=== PATIENT | female | born 1950 | race Caucasian/White ===

== ENCOUNTER 2018-06-15 13:05 | Inpatient (IN) ==
[2018-06-15 14:20] LABS: Baso # (Auto) 0.1 th/mm3 (0.0-0.2); Baso % (Auto) 0.4 % (0.0-2.0); Eos % (Auto) 0.1 % (0.0-4.0); Hematocrit 43.1 % (35.0-46.0); Hemoglobin 14.6 gm/dL (11.6-15.3); Lymph # (Auto) 1.6 th/mm3 (1.0-4.8); Lymph % (Auto) 11.6 % (9.0-44.0); Mean Corpuscular HGB Conc 33.8 % (32.0-36.0); Mean Corpuscular Hemoglobin 30.3 pg (27.0-34.0); Mean Corpuscular Volume 89.7 fL (80.0-100.0); Mean Platelet Volume 7.1 fL (7.0-11.0); Mono % (Auto) 7.5 % (0.0-8.0); Neut # (Auto) 10.9 th/mm3 (1.8-7.7); Neut % (Auto) 80.4 % (16.0-70.0); Platelet Count 421 th/mm3 (150-450); Red Blood Count 4.81 mil/mm3 (4.00-5.30); White Blood Count 13.5 th/mm3 (4.0-11.0)
--- NOTE | 2018-06-15 14:47 | ED ---
HPI General Chief Complaint: Psychiatric Symptoms Stated Complaint: psych eval Time Seen by Provider: 06/15/18 14:04 Source: patient and other (naranjo act report) Limitations: no limitations History of Present Illness HPI Narrative: 67-year-old female presents to the emergency department under Naranjo act. According to the Naranjo act report the patient is very depressed and suffers from multiple health issues as well as financial issues. She has contemplated suicide multiple times and would do so by jumping off hotel balcony 's. The patient stood on the railing of a night for balcony this morning threatening to jump off. She stood on the railing for approximately an hour and a half before an officer was able to grab her and pull her to safety. She made several comments to the officer while being driven to the hospital that if she is released she will likely attempt this again. On my examination the patient reports that she is suicidal and she wants to jump off of a hotel balcony. She says she is thinking about it right now. She states "I regret not jumping." She denies history of suicidal attempts. Reports thinking of suicide multiple times in the past. Denies homicidal ideations. Denies auditory visual hallucinations. Denies illicit drug use, alcohol use, tobacco use. Symptoms are aggravated because of her "severe pain"and describes her severe pain is muscle spasms all over her body. Also aggravated secondary to her health issues. She is complaining of a headache, left wrist abrasions, and right knee pain secondary to injury during being pulled off the balcony. She reports hitting her head on a wall. No loss of consciousness. Has not vomited. Reports a lump to the back of her head that is painful. Not up-to- date on her tetanus vaccination and does not want it updated. Symptoms are severe in severity. No known relieving factors. Onset unknown. Duration most likely chronic. History of adenocarcinoma, ischemic CAD, angioplasty, COPD, asthma, hypertension, borderline diabetes, hypothyroid. Allergies to codeine. Primary CARE providers Dr. Carlos in [place]. Has no other medical complaints. No other modifying factors or associated signs and symptoms. Related Data Home Medications Medication Instructions Recorded Confirmed albuterol sulfate [Ventolin HFA] 1 puff INHALATION Q4-6H PRN 06/15/18 06/15/18 budesonide-formoterol [Symbicort] 1 puff INHALATION BID 06/15/18 06/15/18 losartan 25 mg PO DAILY 06/15/18 06/15/18 Previous Rx's Medication Instructions Recorded levothyroxine [Synthroid] 100 mcg PO DAILY #30 tab 05/08/18 Allergies Allergy/AdvReac Type Severity Reaction Status Date / Time codeine AdvReac Mild Nausea/Vomi Verified 06/15/18 13:18 ting Review of Systems ROS: all other systems reviewed are negative [facility] Medical History Medical History Coronary artery disease (Acute) Diabetes (Acute) Hyperthyroidism (Acute) Hypothyroidism (Acute) Lung nodules (Acute) Myocardial infarction (Acute) Uterine cancer (Acute) Surgical History Surgical History History of angioplasty (Acute) History of facial surgery (Acute) History of gynecologic surgery (Acute) History of tonsillectomy (Acute) Social History Social History Substance History: No History of Abuse Second Hand Smoke Exposure: Yes Smoking Status: Current some day smoker Tobacco Type: Cigarettes How Often Do You Have a Drink Containing Alcohol: Never Recent Travel in [facility] within the Last 8 Weeks: No Recent Out of Country Travel within the Last 8 Weeks: No Immunization History Tetanus Immunization: Unsure Exam Narrative Exam Narrative: GENERAL: Well-nourished, well-developed female patient , in no acute distress SKIN: Warm and dry. Abrasion noted to left wrist, palmar aspect. HEAD:Normocephalic. Palpable posterior scalp hematoma. EYES: Pupils equal and round. ENT: Mucosa pink and moist. NECK: Supple. Trachea midline. CARDIOVASCULAR: Regular rate and rhythm. No murmur appreciated. RESPIRATORY: No accessory muscle use. Clear to auscultation. Breath sounds equal bilaterally. GASTROINTESTINAL: Abdomen soft, non-tender, nondistended. Hepatic and splenic margins not palpable. Bowel sounds are active 4 quadrants. MUSCULOSKELETAL: Right knee mildly edematous with ecchymosis and a small abrasion noted; full range of motion in flexion to 90 degrees; joint stable with negative drawer test; no obvious deformity; tenderness on palpation to the anterior/patellar aspect. Right lower extremity is supple and non-tense with 2 + pedal pulse and sensory intact and without erythema or edema. No obvious deformities. No clubbing. No cyanosis. No edema. NEUROLOGICAL: Awake and alert. Oriented 3. No obvious cranial nerve deficits. Motor grossly within normal limits. Normal speech. Moves all extremities. 5/5 strength to all extremities. PSYCHIATRIC: No delusional thought processes. No hallucinations. Course Initial Documented Vital Signs Temperature 97.6 F 06/15/18 13:24 Pulse Rate 81 06/15/18 13:24 Respiratory Rate 16 06/15/18 13:24 Blood Pressure 139/86 06/15/18 13:24 Pulse Oximetry 96 06/15/18 13:24 Last Documented Vital Signs Temperature 97.6 F 06/15/18 13:24 Pulse Rate 81 06/15/18 13:24 Respiratory Rate 16 06/15/18 13:24 Blood Pressure 139/86 06/15/18 13:24 Pulse Oximetry 96 06/15/18 13:24 Medical Decision Making EMY Attestation EMY supervised visit: Yes Attestation: I was present with the advanced practitioner during the management of this patient. I discussed the case with the advanced practitioner and agree with the findings and plan as documented in their note except as noted below. 67yF presenting under a Naranjo Act for depression, suicidal ideation, and psychosis. The patient has a history of hyponatremia and thyroid disease and says "I have so many health problems I just don't want to be here anymore". She is vague when asked directly about suicidal ideation but was reportedly stopped by police from attempting to jump off of a balcony. She says that she does not take salt tabs at home "because I'm not supposed to have any salt or sugar at all". Denies recent change in synthroid dose. Well-appearing, no acute distress NCAT Trachea midline Regular rate and rhythm Lungs clear to auscultation bilaterally Abdomen soft and non-tender Psoriatic rash to right elbow A&Ox3 Speech pressured and somewhat tangential, calm A/P: 67yF presenting with suicidal ideation, found to have acute on chronic severe hyponatremia during medical clearance workup Patient is being held under [place] Act, will need psych eval TSH elevated, check free T4 Will need medical stabilization for hyponatremia prior to being medically cleared MDM Narrative Medical decision making narrative: Patient presents under a Naranjo act. Physical examination and vital signs are essentially unremarkable. Patient has no medical complaints to report. Psych screen has been ordered. If the laboratory results are unremarkable, the patient will be medically cleared for psychiatric evaluation and disposition. 1539: CT head unremarkable. Right knee x-ray concludes : Mild degenerative changes. Small effusion. CBC unremarkable. Sodium 123. TSH 16.3; patient has history of hypothyroid and takes Synthroid and says that she is been taking it every day, except for this morning. IV and 500 mL normal saline bolus ordered. Free T4 ordered. Patient will be admitted to medical. Call placed for patient admission. 1618: I spoke with CLARENCE Hannon and report given for patient admission. Medical Screen Exam Complete: Yes Emergency Medical Condition: Yes Differential Diagnosis Differential Diagnosis: Suicidal threat, suicidal ideation, depression, head contusion, abrasion, knee injury, medical clearance for psychiatric evaluation Lab Data Result diagrams: 06/15/18 13:23 06/15/18 13:23 Lab Results 06/15/18 06/15/18 06/15/18 Range/Units 13:23 13:23 13:23 WBC 13.5 H (4.0-11.0) th/mm3 RBC 4.81 (4.00-5.30) mil/mm3 Hgb 14.6 (11.6-15.3) gm/dL Hct 43.1 (35.0-46.0) % MCV 89.7 (80.0-100.0) fL MCH 30.3 (27.0-34.0) pg MCHC 33.8 (32.0-36.0) % RDW 16.0 (11.6-17.2) % Plt Count 421 (150-450) th/mm3 MPV 7.1 (7.0-11.0) fL Neut % (Auto) 80.4 H (16.0-70.0) % Lymph % (Auto) 11.6 (9.0-44.0) % [place] % (Auto) 7.5 (0.0-8.0) % Eos % (Auto) 0.1 (0.0-4.0) % Baso % (Auto) 0.4 (0.0-2.0) % Neut # (Auto) 10.9 H (1.8-7.7) th/mm3 Lymph # (Auto) 1.6 (1.0-4.8) th/mm3 [place] # (Auto) 1.0 H (0.0-0.9) th/mm3 Eos # (Auto) 0.0 (0.0-0.4) th/mm3 Baso # (Auto) 0.1 (0.0-0.2) th/mm3 WBC Differential . Differential Comment Auto diff final Sodium 123 L* (136-145) meq/L Potassium 4.1 (3.5-5.1) meq/L Chloride 89 L (98-107) meq/L Carbon Dioxide 25.6 (21.0-32.0) meq/L Anion Gap 8 (5-15) meq/L BUN 12 (7-18) mg/dL Creatinine 0.83 (0.50-1.00) mg/dL Estimated GFR 69 L (>89) mL/min Random Glucose 100 (74-106) mg/dL Calcium 9.0 (8.5-10.1) mg/dL Magnesium 2.4 (1.5-2.5) mg/dL Total Bilirubin 1.1 H (0.2-1.0) mg/dL AST 37 (15-37) U/L ALT 40 (10-53) U/L Alkaline Phosphatase 63 (45-117) U/L Total Protein 8.0 (6.4-8.2) g/dL Albumin 4.7 (3.4-5.0) g/dL TSH 16.300 H (0.358-3.740) uIU/mL Urine Color (Yellw/Straw) Urine Clarity (Clear) Urine pH (5.0-8.5) Ur Specific [place] (1.002-1.035) Urine Protein (Neg-Trace) mg/dL Urine Glucose (UA) (Negative) mg/dL Urine Ketones (Negative) mg/dL Urine Occult Blood (Negative) Urine Nitrate (Negative) Urine Bilirubin (Negative) Urine Urobilinogen (Less than 2) mg/dL Ur Leukocyte Esterase (Negative) Urine RBC (0-3) /hpf Urine WBC (0-5) /hpf Ur Squamous Epith Cells (0-5) /hpf Urine Bacteria (None) /hpf Hyaline Casts (0-3) /lpf Micro UA Comment Ur Microscopic Review Urine Culture Comments Salicylates (2.8-20.0) mg/dL Urine Opiates Screen (Neg) Acetaminophen Less than 2.0 L Cancelled (10.0-30.0) mcg/mL Ur Barbiturates Screen (Neg) Ur Amphetamines Screen (Neg) U Benzodiazepines Scrn (Neg) Urine Cocaine Screen (Neg) U Cannabinoids Screen (Neg) Serum Alcohol Less than 3 (0-5) mg/dL 06/15/18 06/15/18 06/15/18 Range/Units 13:23 14:55 14:55 WBC (4.0-11.0) th/mm3 RBC (4.00-5.30) mil/mm3 Hgb (11.6-15.3) gm/dL Hct (35.0-46.0) % MCV (80.0-100.0) fL MCH (27.0-34.0) pg MCHC (32.0-36.0) % RDW (11.6-17.2) % Plt Count (150-450) th/mm3 MPV (7.0-11.0) fL Neut % (Auto) (16.0-70.0) % Lymph % (Auto) (9.0-44.0) % Blanco % (Auto) (0.0-8.0) % Eos % (Auto) (0.0-4.0) % Baso % (Auto) (0.0-2.0) % Neut # (Auto) (1.8-7.7) th/mm3 Lymph # (Auto) (1.0-4.8) th/mm3 [place] # (Auto) (0.0-0.9) th/mm3 Eos # (Auto) (0.0-0.4) th/mm3 Baso # (Auto) (0.0-0.2) th/mm3 WBC Differential Differential Comment Sodium (136-145) meq/L Potassium (3.5-5.1) meq/L Chloride (98-107) meq/L Carbon Dioxide (21.0-32.0) meq/L Anion Gap (5-15) meq/L BUN (7-18) mg/dL Creatinine (0.50-1.00) mg/dL Estimated GFR (>89) mL/min Random Glucose (74-106) mg/dL Calcium (8.5-10.1) mg/dL Magnesium (1.5-2.5) mg/dL Total Bilirubin (0.2-1.0) mg/dL AST (15-37) U/L ALT (10-53) U/L Alkaline Phosphatase (45-117) U/L Total Protein (6.4-8.2) g/dL Albumin (3.4-5.0) g/dL TSH (0.358-3.740) uIU/mL Urine Color Yellow (Yellw/Straw) Urine Clarity Clear (Clear) Urine pH 6.0 (5.0-8.5) Ur Specific [place] 1.008 (1.002-1.035) Urine Protein 100 H (Neg-Trace) mg/dL Urine Glucose (UA) Negative (Negative) mg/dL Urine Ketones Negative (Negative) mg/dL Urine Occult Blood Moderate H (Negative) Urine Nitrate Negative (Negative) Urine Bilirubin Negative (Negative) Urine Urobilinogen Less than 2 (Less than 2) mg/dL Ur Leukocyte Esterase Negative (Negative) Urine RBC 3 (0-3) /hpf Urine WBC 1 (0-5) /hpf Ur Squamous Epith Cells <1 (0-5) /hpf Urine Bacteria Rare H (None) /hpf Hyaline Casts 3 (0-3) /lpf Micro UA Comment Culture not ind Ur Microscopic Review Not Reportable Urine Culture Comments Culture not ind Salicylates 3.4 (2.8-20.0) mg/dL Urine Opiates Screen Neg (Neg) Acetaminophen (10.0-30.0) mcg/mL Ur Barbiturates Screen Neg (Neg) Ur Amphetamines Screen Neg (Neg) U Benzodiazepines Scrn Neg (Neg) Urine Cocaine Screen Neg (Neg) U Cannabinoids Screen Neg (Neg) Serum Alcohol (0-5) mg/dL Imaging Data Radiologist's impression: Head CT 06/15/18 14:42 CONCLUSION: 1. No acute intracranial abnormalities. . Knee X-Ray 06/15/18 14:42 CONCLUSION: Mild degenerative changes. Small effusion. Discharge Plan Discharge Disposition Patient Disposition: 30 Still Patient Discharge Condition Condition: Stable Discharge Details Diagnosis: Hyponatremia, Elevated TSH Physicians Team ED Provider: Malinda Alva ED Midlevel Provider: Teresa Dai Primary Care Provider: UNKNOWN, Attending Provider: Kari Nicole ED Status: Admitted Patient
[2018-06-15 15:10] LABS: Alanine Aminotransferase 40 U/L (10-53); Albumin 4.7 g/dL (3.4-5.0); Alkaline Phosphatase 63 U/L (45-117); Anion Gap 8 meq/L (5-15); Aspartate Aminotransferase 37 U/L (15-37); Blood Urea Nitrogen 12 mg/dL (7-18); Carbon Dioxide 25.6 meq/L (21.0-32.0); Chloride 89 meq/L (98-107); Glomerular Filtration Rate 69 mL/min (>89); Glucose,Random 100 mg/dL (74-106); Magnesium 2.4 mg/dL (1.5-2.5)
[2018-06-15 15:20] LABS: Potassium 4.1 meq/L (3.5-5.1)
[2018-06-15 15:22] LABS: Bacteria,Urine Rare /hpf; Bilirubin,Urine Negative (Negative); Clarity,Urine Clear (Clear); Color,Urine Yellow (Yellw/Straw); Glucose,Urine (UA) Negative (Negative); Hyaline Casts,Urine 3 /lpf (0-3); Leukocyte Esterase,Urine Negative (Negative); Nitrite,Urine Negative (Negative); Specific Gravity,Urine 1.008 (1.002-1.035); Squamous Epithelial Cell,Urine <1 /hpf (0-5)
[2018-06-15 15:24] LABS: Sodium 123 meq/L (136-145)
--- NOTE | 2018-06-15 15:30 | XR ---
EXAM DATE: 06/15/2018 2:42 PM EDT AGE/SEX: 67 years / Female INDICATIONS: Fell today. CLINICAL DATA: This is the patient's initial encounter. Patient reports that signs and symptoms have been present for 1 day and indicates a pain score of Nonresponsive. MEDICAL/SURGICAL HISTORY: None. None. COMPARISON: No prior exams available for comparison. FINDINGS: Small knee joint effusion. Mild osteoarthritis of the patellofemoral joint. No fracture or dislocatio n. CONCLUSION: Mild degenerative changes. Small effusion. Electronically signed by: Vinnie Barros MD 06/15/2018 3:29 PM EDT
--- NOTE | 2018-06-15 15:33 | CT ---
EXAM DATE: 06/15/2018 2:48 PM EDT AGE/SEX: 67 years / Female INDICATIONS: Altered mental status. Left sided weakness. CLINICAL DATA: This is the patient's initial encounter. Patient reports that signs and symptoms have been present for 1 day and indicates a pain score of 6/10. MEDICAL/SURGICAL HISTORY: Diabetes. Carcinoma, uterine. Myocardial infarction. Tonsillectomy. RADIATION DOSE: 42.76 CTDI (mGy) COMPARISON: [facility] [place], CT HEAD W/O CONTRAST, 05/08/2018. . TECHNIQUE: CT of the head without contrast. Using automated exposure control and adjustment of the mA and/or kV according to patient size, radiation dose was kept as low as reasonably achievable to ob tain optimal diagnostic quality images. DICOM format image data is available electronically for revi ew and comparison. FINDINGS: Cerebrum: The ventricles are normal for age. No evidence of midline shift, mass lesion, hemorrhage or acute infarction. No extraaxial fluid collections are seen. Posterior Fossa: The cerebellum and brainstem are intact. The 4th ventricle is midline. The cerebe llopontine angle is unremarkable. Extracranial: The visualized portion of the orbits is intact. Skull: The calvaria is intact. No evidence of skull fracture. CONCLUSION: 1. No acute intracranial abnormalities. . Electronically signed by: El Xavier MD 06/15/2018 3:32 PM EDT
[2018-06-15] MEDS ORDERED: Sodium Chlor 0.9% Inj 500 ML IV.SIG SCH (16:00)
[2018-06-15 16:19] LABS: Amphetamine Screen,Urine Neg (Neg); Barbiturate Screen,Urine Neg (Neg); Cannabinoid Screen,Urine Neg (Neg); Cocaine Screen,Urine Neg (Neg)
[2018-06-15 16:50] LABS: Opiate Screen,Urine Neg (Neg)
[2018-06-15] MEDS ORDERED: Bisacodyl 10 MG Supp RECTAL PRN (17:27)
[2018-06-15] MEDS ORDERED: Sod Chloride 0.9% Inj 1,000 ML IV.CONT SCH (17:30)
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
[2018-06-15] MEDS: Heparin - SQ 10,000 UNITS/ML Vial SQ SCH (18:23)
[2018-06-15] MEDS: Senna/Docusate Sodium 8.6/50 MG Tablet PO SCH (21:09)
[2018-06-15] MEDS: Budesonide-Formoterol 160/4.5 MCG 6 GM Inhaler INH SCH (21:10)
[2018-06-15] MEDS: Acetaminophen 325 MG Tablet PO PRN (22:52)
[2018-06-16] MEDS: Acetaminophen 325 MG Tablet PO PRN ×3 (04:03→21:23)
[2018-06-16] MEDS: Heparin - SQ 10,000 UNITS/ML Vial SQ SCH ×2 (05:09→17:56)
[2018-06-16] MEDS: Levothyroxine 100 MCG Tablet PO SCH (05:09)
[2018-06-16 08:47] LABS: Baso % (Auto) 0.6 % (0.0-2.0); Eos % (Auto) 0.5 % (0.0-4.0); Hematocrit 38.6 % (35.0-46.0); Hemoglobin 13.2 gm/dL (11.6-15.3); Lymph # (Auto) 1.8 th/mm3 (1.0-4.8); Lymph % (Auto) 25.9 % (9.0-44.0); Mean Corpuscular HGB Conc 34.1 % (32.0-36.0); Mean Corpuscular Hemoglobin 30.8 pg (27.0-34.0); Mean Corpuscular Volume 90.2 fL (80.0-100.0); Mono # (Auto) 0.7 th/mm3 (0.0-0.9); Mono % (Auto) 10.4 % (0.0-8.0); Neut # (Auto) 4.4 th/mm3 (1.8-7.7); Neut % (Auto) 62.6 % (16.0-70.0); Platelet Count 346 th/mm3 (150-450); Red Blood Count 4.28 mil/mm3 (4.00-5.30); Red Cell Distribution Width 16.4 % (11.6-17.2); White Blood Count 6.9 th/mm3 (4.0-11.0)
[2018-06-16 08:56] LABS: Anion Gap 8 meq/L (5-15); Blood Urea Nitrogen 10 mg/dL (7-18); Calcium 7.9 mg/dL (8.5-10.1); Carbon Dioxide 25.7 meq/L (21.0-32.0); Chloride 94 meq/L (98-107); Glomerular Filtration Rate Greater Than 89 mL/min (>89); Glucose,Random 89 mg/dL (74-106); Potassium 3.6 meq/L (3.5-5.1); Sodium 128 meq/L (136-145)
[2018-06-16] MEDS: Senna/Docusate Sodium 8.6/50 MG Tablet PO SCH ×2 (09:52→21:23)
[2018-06-16] MEDS: Budesonide-Formoterol 160/4.5 MCG 6 GM Inhaler INH SCH ×2 (11:32→21:25)
--- NOTE | 2018-06-16 13:18 | P.PN ---
Subjective Interval history: Follow up: hyponatremia and Hypothyroidism Patient visited with sitter at bedside Patient endorses pain left knee Patient also has tangental pressured speech Physical Exam Vital signs: Vital Signs 06/15/18 13:24 06/15/18 16:30 06/15/18 19:05 Temperature 97.6 F Pulse Rate 81 84 Respiratory Rate 16 16 Blood Pressure 139/86 118/52 L Pulse Oximetry 96 98 97 06/15/18 19:10 06/15/18 20:00 06/15/18 23:57 Temperature 96.2 F L 96.4 F L Pulse Rate 96 H 74 91 H Respiratory Rate 18 19 Blood Pressure 137/69 139/70 Pulse Oximetry 97 96 06/16/18 00:00 06/16/18 04:00 06/16/18 08:00 Temperature 96.4 F L 97.8 F Pulse Rate 73 94 H 82 Respiratory Rate 18 20 Blood Pressure 135/71 155/74 H Pulse Oximetry 96 95 06/16/18 12:00 Temperature 97.3 F L Pulse Rate 82 Respiratory Rate 20 Blood Pressure 148/69 H Pulse Oximetry 97 Intake & Output 06/15/18 06/16/18 06/16/18 18:59 06:59 18:59 Intake Total 500 / 500 360 / 360 Output Total 1450 / 1450 Balance 500 / 500 -1090 / -1090 Weight 56.699 kg 62 kg Intake: IV 500 / 500 NS Inj 500 ML @ Wide Open IV. 500 / 500 SIG BOLUS SHANNON Rx#:[id number] Oral 360 / 360 Output: Urine 1450 / 1450 Other: # Bowel Movements 0 Weight On Admission 56.699 kg Narrative: GENERAL: This is a well-nourished, well-developed patient CARDIOVASCULAR: Regular rate and rhythm RESPIRATORY: Clear to auscultation. Breath sounds equal bilaterally. GASTROINTESTINAL: Abdomen soft, non-tender, nondistended. Normal active bowel sounds MUSCULOSKELETAL: Extremities without clubbing, cyanosis. left knee mild edema NEURO: Alert & Oriented. Moves all ext x4. tangental pressured speech Results - Labs CBC & Chem 7: 06/16/18 06:53 06/16/18 06:53 Laboratory Results - last 24 hr 06/15/18 06/15/18 06/15/18 13:23 13:23 13:23 WBC 13.5 H RBC 4.81 Hgb 14.6 Hct 43.1 MCV 89.7 MCH 30.3 MCHC 33.8 RDW 16.0 Plt Count 421 MPV 7.1 Neut % (Auto) 80.4 H Lymph % (Auto) 11.6 [place] % (Auto) 7.5 Eos % (Auto) 0.1 Baso % (Auto) 0.4 Neut # (Auto) 10.9 H Lymph # (Auto) 1.6 [place] # (Auto) 1.0 H Eos # (Auto) 0.0 Baso # (Auto) 0.1 WBC Differential . Differential Comment Auto diff final Sodium 123 L* Potassium 4.1 Chloride 89 L Carbon Dioxide 25.6 Anion Gap 8 BUN 12 Creatinine 0.83 Estimated GFR 69 L Random Glucose 100 Osmolality Calcium 9.0 Magnesium 2.4 Total Bilirubin 1.1 H AST 37 ALT 40 Alkaline Phosphatase 63 Total Protein 8.0 Albumin 4.7 TSH 16.300 H Urine Color Urine Clarity Urine pH Ur Specific [place] Urine Protein Urine Glucose (UA) Urine Ketones Urine Occult Blood Urine Nitrate Urine Bilirubin Urine Urobilinogen Ur Leukocyte Esterase Urine RBC Urine WBC Ur Squamous Epith Cells Urine Bacteria Hyaline Casts Micro UA Comment Ur Microscopic Review Urine Culture Comments Urine Osmolality Ur Random Sodium Salicylates Urine Opiates Screen Acetaminophen Less than 2.0 L Cancelled Ur Barbiturates Screen Ur Amphetamines Screen U Benzodiazepines Scrn Urine Cocaine Screen U Cannabinoids Screen Serum Alcohol Less than 3 06/15/18 06/15/18 06/15/18 13:23 13:23 14:55 WBC RBC Hgb Hct MCV MCH MCHC RDW Plt Count MPV Neut % (Auto) Lymph % (Auto) [place] % (Auto) Eos % (Auto) Baso % (Auto) Neut # (Auto) Lymph # (Auto) [place] # (Auto) Eos # (Auto) Baso # (Auto) WBC Differential Differential Comment Sodium Potassium Chloride Carbon Dioxide Anion Gap BUN Creatinine Estimated GFR Random Glucose Osmolality 270 L Calcium Magnesium Total Bilirubin AST ALT Alkaline Phosphatase Total Protein Albumin TSH Urine Color Urine Clarity Urine pH Ur Specific [place] Urine Protein Urine Glucose (UA) Urine Ketones Urine Occult Blood Urine Nitrate Urine Bilirubin Urine Urobilinogen Ur Leukocyte Esterase Urine RBC Urine WBC Ur Squamous Epith Cells Urine Bacteria Hyaline Casts Micro UA Comment Ur Microscopic Review Urine Culture Comments Urine Osmolality Ur Random Sodium Salicylates 3.4 Urine Opiates Screen Neg Acetaminophen Ur Barbiturates Screen Neg Ur Amphetamines Screen Neg U Benzodiazepines Scrn Neg Urine Cocaine Screen Neg U Cannabinoids Screen Neg Serum Alcohol 06/15/18 06/16/18 06/16/18 14:55 04:25 04:25 WBC RBC Hgb Hct MCV MCH MCHC RDW Plt Count MPV Neut % (Auto) Lymph % (Auto) [place] % (Auto) Eos % (Auto) Baso % (Auto) Neut # (Auto) Lymph # (Auto) [place] # (Auto) Eos # (Auto) Baso # (Auto) WBC Differential Differential Comment Sodium Potassium Chloride Carbon Dioxide Anion Gap BUN Creatinine Estimated GFR Random Glucose Osmolality Calcium Magnesium Total Bilirubin AST ALT Alkaline Phosphatase Total Protein Albumin TSH Urine Color Yellow Urine Clarity Clear Urine pH 6.0 Ur Specific [place] 1.008 Urine Protein 100 H Urine Glucose (UA) Negative Urine Ketones Negative Urine Occult Blood Moderate H Urine Nitrate Negative Urine Bilirubin Negative Urine Urobilinogen Less than 2 Ur Leukocyte Esterase Negative Urine RBC 3 Urine WBC 1 Ur Squamous Epith Cells <1 Urine Bacteria Rare H Hyaline Casts 3 Micro UA Comment Culture not ind Ur Microscopic Review Not Reportable Urine Culture Comments Culture not ind Urine Osmolality 276 L Ur Random Sodium 19 Salicylates Urine Opiates Screen Acetaminophen Ur Barbiturates Screen Ur Amphetamines Screen U Benzodiazepines Scrn Urine Cocaine Screen U Cannabinoids Screen Serum Alcohol 06/16/18 06/16/18 06:53 06:53 WBC 6.9 RBC 4.28 Hgb 13.2 Hct 38.6 MCV 90.2 MCH 30.8 MCHC 34.1 RDW 16.4 Plt Count 346 MPV 7.0 Neut % (Auto) 62.6 Lymph % (Auto) 25.9 [place] % (Auto) 10.4 H Eos % (Auto) 0.5 Baso % (Auto) 0.6 Neut # (Auto) 4.4 Lymph # (Auto) 1.8 [place] # (Auto) 0.7 Eos # (Auto) 0.0 Baso # (Auto) 0.0 WBC Differential . Differential Comment Auto diff final Sodium 128 L Potassium 3.6 Chloride 94 L Carbon Dioxide 25.7 Anion Gap 8 BUN 10 Creatinine 0.63 Estimated GFR Greater than 89 Random Glucose 89 Osmolality Calcium 7.9 L D Magnesium Total Bilirubin AST ALT Alkaline Phosphatase Total Protein Albumin TSH Urine Color Urine Clarity Urine pH Ur Specific [place] Urine Protein Urine Glucose (UA) Urine Ketones Urine Occult Blood Urine Nitrate Urine Bilirubin Urine Urobilinogen Ur Leukocyte Esterase Urine RBC Urine WBC Ur Squamous Epith Cells Urine Bacteria Hyaline Casts Micro UA Comment Ur Microscopic Review Urine Culture Comments Urine Osmolality Ur Random Sodium Salicylates Urine Opiates Screen Acetaminophen Ur Barbiturates Screen Ur Amphetamines Screen U Benzodiazepines Scrn Urine Cocaine Screen U Cannabinoids Screen Serum Alcohol - Imaging Impressions Head CT 06/15/18 14:42 CONCLUSION: 1. No acute intracranial abnormalities. . Knee X-Ray 06/15/18 14:42 CONCLUSION: Mild degenerative changes. Small effusion. Assessment and Plan - Plan 67-year-old female with past medical history significant for coronary artery disease with angioplasty x2, hypertension, COPD, asthma, prediabetes, hypothyroidism, and chronic hyponatremia who presents to the emergency department under [place] act. Patient apparently had become depressed and had plans of jumping off of a hotel balcony. Long enforcement was called and patient was grabbed and pulled to safety and not brought to the emergency department for further evaluation. Baseline lab work in the emergency department revealed mild leukocytosis and critical hyponatremia with sodium level 123. T bili minimally elevated at 1.1 and TSH 16.3. Urinalysis and toxicology screen negative. Symptomatic hyponatremia, acute on chronic - Na on admission 123 -> 128 (06/06) - recheck in AM -Review of medical records show patient sodium level 128 back on 05/08/18 -Patient reports chronic hyponatremia -urine sodium 19, urine osmolality 276, serum osmolality 270 -Patient received 500 mL bolus of NS in the emergency department -NS at 45 mL's per hour DC'd -Follow sodium levels - 1200 ml fluid restriction Hypothyroidism -Patient reports she was taking nature thyroid supplement at home -patient started on levothyroxine 100 mcg daily, continue - patient will need TSH rechecked in 3-6 weeks COPD/asthma, chronic and stable -Continue as needed albuterol inhaler and Symbicort -Nasal cannula if needed Hypertension/CAD -Continue losartan, adjust medications accordingly Suicidal ideation Marcella acted -One-on-one sitter for monitoring Consult psychiatry, assistance greatly appreciated -Head CT scan negative, knee x-ray with mild degenerative changes and small effusion to right knee DVT prophylaxissubcu heparin Discussed Condition With: Patient, nurse and Supervising physician Dr. Leyva
--- NOTE | 2018-06-16 13:47 | P.CONPSY ---
Provisional Diagnosis Admission Date: June 15, 2018 16:17 Avery I.: Major depressive disorder, recurrent, severe, without psychosis History of Present Illness Service: Medicine Primary Care Provider: UNKNOWN Chief Complaint: "I didn't want to go on" History of Present Illness: The patient is 67-year-old woman, at the moment homeless, poor family and social support, , with a psychiatric history of major depressive disorder, anxiety, no prepsychotic hospitalizations, no previous suicidal attempts, with a significant medical history of coronary artery disease with angioplasty x2, hypertension, COPD, asthma, prediabetes, hypothyroidism, thyroid and uterine cancer, and chronic hyponatremia who presents to the emergency department under [place] act. Patient apparently had become depressed and had plans of jumping off of a hotel balcony. Long enforcement was called and patient was grabbed and pulled when she was about to jump off a balcony and was brought to the emergency department for further evaluation. Baseline lab work in the emergency department revealed mild leukocytosis and critical hyponatremia with sodium level 123. T bili minimally elevated at 1.1 and TSH 16.3. Urinalysis and toxicology screen negative. Patient reports that she has had hyponatremia for the past 2 years and recently in the past month noticed in her lab work that her sodium levels were low. Chart was reviewed. No collateral information available at the moment. On my psychiatric evaluation the patient is tearful, objectively depressed. Patient reports that yesterday after having a very rough day, after becoming aware that she has nobody no place to go and she is now homeless, "I have spent all my money in a hotels, I called my daughter and she refused to talk to" she tried to commit suicide. But she says that she does not want to anymore. She says that since the year 2014 her life has being going down the heel. In 2014 she was diagnosed with uterine cancer and she has pain several months in the hospital due to surgery and complications. At the end of the same year when she thought that she was ready getting better she was diagnosed then with thyroid cancer and she did her surgery in 2016. She says that since she does not have her thyroid, her thyroid hormone has been crazy and she has been suffering of frequent mood swings and confusion. But, at the same time she says that her economical situation has been also declining significantly. She says that "I am hated by my daughter and hated by my sister and hated by my whole family". The patient clarifies that yesterday she could be confused during the day and feeling very depressed "related with my tidal hormones, because today I feel quite different ". At this moment the patient does report depression, reports some level of hopelessness, helplessness, worthlessness, being pessimistic about the future, but she denies suicidal ideation. The patient is fully oriented x3, without attention deficit, and without fluctuation of consciousness at the moment. PPHx: Major depressive disorder, anxiety, she denies previous psychiatric hospitalizations, denies previous suicide attempt PMHx: significant medical history of coronary artery disease with angioplasty x2, hypertension, COPD, asthma, prediabetes, hypothyroidism, thyroid and uterine cancer, and chronic hyponatremia Substance Hx: She denies the use of illegal drugs and alcohol Family Hx: No family psychiatric history Social Hx: The patient was born and raised in [facility], she has lived in several countries including [place] and [facility], she is unemployed, she has 146 years old daughter, , she has a college degree Review of Systems All other systems reviewed negative except as stated in HPI Psychiatric: Reports confusion, Reports depression, Reports thoughts of hurting/ killing yourself PMFSH - History History Provided By: Patient - Medical History Medical History: Medical History (Last Updated 06/15/18 @ 17:49 by Jose Angel Magana) Asthma CAD (coronary artery disease) COPD (chronic obstructive pulmonary disease) Coronary artery disease Diabetes Hyperthyroidism Hypothyroidism Lung nodules Myocardial infarction Prediabetes Uterine cancer - Surgical History Surgical History: Surgical History (Last Reviewed 06/15/18 @ 17:49 by Jose Angel Magana) History of angioplasty History of facial surgery History of gynecologic surgery History of tonsillectomy - Family History Family History: Family History (Last Updated 06/15/18 @ 17:50 by Jose Angel Magana) Father Colon cancer Mother Pancreatic cancer Mother Pancreatic cancer - Tobacco History Second Hand Smoke Exposure: Yes Tobacco Use In Past 30 Days: Yes Smoking Status: Former smoker Tobacco Type: Cigarettes - Alcohol History How Often Do You Have a Drink Containing Alcohol: Never - Substance Use History Substance History: No History of Abuse - Travel History Recent Travel in the [facility] Within the Last 8 Weeks: No Recent Travel Out of the Country Within the Last 8 Weeks: No - Immunization History Tetanus Immunization: Unsure Hx Influenza Vaccine This Season: No Medications and Allergies Active Medications: Active Medications Acetaminophen (Tylenol) 650 mg PO Q4H PRN PRN Reason: headache, temp > 100.4 Last Admin: 06/16/18 13:17 Dose: 650 mg Al Hydroxide/Mg Hydroxide (Milk Of Magnesia Liq) 30 ml PO Q12H PRN PRN Reason: Mild Constipation Albuterol (Ventolin Hfa Inh) 1 puff INH Q4H PRN PRN Reason: Shortness Of Breath Or Wheezing Bisacodyl (Dulcolax Supp) 10 mg RECTAL DAILY PRN PRN Reason: SEVERE CONSITIPATION Budesonide/Formoterol Fumarate (Symbicort 160/4.5 Mcg Inh) 1 puff INH BID [facility] Last Admin: 06/16/18 11:32 Dose: 1 puff Heparin Sodium (Porcine) (Heparin Inj) 5,000 units SQ Q12H [facility] Last Admin: 06/16/18 05:09 Dose: 5,000 units Sodium Chloride (Ns Inj) 500 mls @ 0 mls/hr IV.SIG BOLUS [facility] Last Infusion: 06/15/18 17:04 Dose: Infused Lactulose (Lactulose Liq) 30 ml PO DAILY PRN PRN Reason: SEVERE CONSITIPATION Levothyroxine Sodium (Synthroid) 100 mcg PO DAILY@0600 [facility] Last Admin: 06/16/18 05:09 Dose: 100 mcg Losartan Potassium (Cozaar) 25 mg PO DAILY [facility] Last Admin: 06/16/18 09:51 Dose: 25 mg Ondansetron HCl (Zofran Inj) 4 mg IV.PUSH Q6H PRN PRN Reason: NAUSEA OR VOMITING Senna/Docusate Sodium (Tasneem-Colace) 1 tab PO BID [facility] Last Admin: 06/16/18 09:52 Dose: 1 tab Sennosides (Senokot) 17.2 mg PO Q12H PRN PRN Reason: Moderate Constipation Allergies Allergy/AdvReac Type Severity Reaction Status Date / Time codeine AdvReac Mild Nausea/Vomi Verified 06/15/18 13:18 ting Home Medications Medication Instructions Recorded Confirmed Type albuterol sulfate [Ventolin HFA] 1 puff INHALATION Q4-6H PRN 06/15/18 06/15/18 History budesonide-formoterol [Symbicort] 1 puff INHALATION BID 06/15/18 06/15/18 History losartan 25 mg PO DAILY 06/15/18 06/15/18 History Exam Vital signs: Vital Signs 06/15/18 16:30 06/15/18 19:05 06/15/18 19:10 Temperature 96.2 F L Pulse Rate 84 96 H Respiratory Rate 16 18 Blood Pressure 118/52 L 137/69 Pulse Oximetry 98 97 97 06/15/18 20:00 06/15/18 23:57 06/16/18 00:00 Temperature 96.4 F L Pulse Rate 74 91 H 73 Respiratory Rate 19 Blood Pressure 139/70 Pulse Oximetry 96 06/16/18 04:00 06/16/18 08:00 06/16/18 12:00 Temperature 96.4 F L 97.8 F 97.3 F L Pulse Rate 94 H 82 82 Respiratory Rate 18 20 20 Blood Pressure 135/71 155/74 H 148/69 H Pulse Oximetry 96 95 97 Intake & Output 06/15/18 06/16/18 06/16/18 18:59 06:59 18:59 Intake Total 500 / 500 360 / 360 Output Total 1450 / 1450 Balance 500 / 500 -1090 / -1090 Weight 56.699 kg 62 kg Intake: IV 500 / 500 NS Inj 500 ML @ Wide Open IV. 500 / 500 SIG [facility] Rx#:[id number] Oral 360 / 360 Output: Urine 1450 / 1450 Other: # Bowel Movements 0 Weight On Admission 56.699 kg Narrative: No psychomotor agitation retardation, no tremors, no EPS, no catatonia, no gait disturbance - Constitutional no acute distress, mild distress - Routine HEENT Exam Head: Present: normocephalic Eye: Present: EOMI, PERRL ENT: Present: mucous membranes moist Mental Status Examination Appearance: Appropriate Consciousness: Alert Orientation: x4 Motor Activity: Normal gait Speech: Unremarkable Language: Adequate Fund of Knowledge: Adequate Attention and Concentration: Adequate Memory: Unremarkable Mood: Sad Affect: Sad Thought Process & Associations: Intact Thought Content: Appropriate Hallucination Type: None Delusion Type: None Suicidal Ideation: Yes Suicidal Plan: No Suicidal Intention: No Homicidal Ideation: No Homicidal Plan: No Homicidal Intention: No Insight: Adequate Judgment: Adequate Assessment and Plan - Plan Plan: On my psychiatric evaluation today I find a patient that is calm, cooperative, but tearful throughout the evaluation. The patient reports that yesterday she felt that she could not take it anymore and then she tried to commit suicide by jumping off a balcony in a hotel from where she had to be actually pulled out by the police. She reports that since she has become homeless, she has lost basically all her money, she has been in communicated with her family, especially with her daughter, she called her daughter yesterday but these were refused to help her, she has been increasingly depressed, feeling rejected, abandoned, hopeless, helpless, worthless and with suicidal ideation. She also reports a sinus stressor her multiple medical conditions, including history of cancer and thyroid hormone dysregulation. At this moment the patient has an elevated risk of danger to self, she needs psychiatric admission for stabilization. She needs to continue to be on one-to-one in the medical floor. Transfer to psychiatry was medically stable. I will start Effexor 37.5 mg daily for depression, as well as clonazepam 0.2 mg twice daily for anxiety. I will follow-up. Justification for Continued Inpatient Stay: Transfer to psychiatry once medically stable
[2018-06-17] MEDS: Acetaminophen 325 MG Tablet PO PRN ×4 (02:10→21:27)
[2018-06-17] MEDS: Levothyroxine 100 MCG Tablet PO SCH (06:03)
[2018-06-17] MEDS: Heparin - SQ 10,000 UNITS/ML Vial SQ SCH ×2 (06:04→17:19)
[2018-06-17] MEDS: Budesonide-Formoterol 160/4.5 MCG 6 GM Inhaler INH SCH ×2 (08:52→21:27)
[2018-06-17] MEDS: Senna/Docusate Sodium 8.6/50 MG Tablet PO SCH ×2 (08:52→21:27)
--- NOTE | 2018-06-17 10:45 | P.DIET ---
Nutritional Evaluation Type of nutrition evaluation: initial Nutrition screening: Weight Loss > 10 lbs Subjective Subjective Comments: Patient reports a good appetite but also recent unintended weight loss. Objective - Diagnosis Hyponatremia, elevated TSH, suicidal ideation - Objective [place] body weight: 59 kg % IBW: 105 Body Weight Used for Calculations: Actual (62kg) Energy Needs - Lower Range (kCal/kg): 28 Energy Needs - Upper Range (kCal/kg): 33 Lower Limit kCal/kg (kCals): 1,736 Upper Limit kCal/kg (kCals): 2,046 Lower Limit Protein Factor (Grams per Kg): 1.1 Upper Limit Protein Factor (Grams per Kg): 1.3 Lower Protein Needs (Protein): 68 Upper Protein Needs (Protein): 81 Dietitian Reviewed in Medical Record: Current diet, Curent medications, Intake & Output, Labs, Medical history Diet Order: Cardiac with FR Oral Diet Intake Amount: Fair 50-75% Objective Comments: Pt homeless, living in hotel. PMH: includes DM, CAD, MT, Hypothyroidism, Hyperthyroidism Assessment Assessment: Pt at nutritional risk r/t current clinical status and recent reported unintentional wt loss. Pt currently on medical floor but will be transferring to psychiatry when medically stable per MD r/t suicidal ideations/depression. Nutritional needs as assessed above. Pt ate 50-100% of her meals yesterday, however, adequate po intake has not yet been established. Will monitor clinical course. Recommendations: Cardiac diet with FR Monitor po intake and provide supplements as needed. Dietitian to Monitor: Lab values, Intake & Output, Diet tolerance, Weight change , PO Intake, Medical course
--- NOTE | 2018-06-17 11:07 | P.PNIM ---
Subjective Interval history: Follow up: hyponatremia and Hypothyroidism Patient visited with sitter at bedside concerned regarding her clonazepam would like this restarted Offers no other concerns/complaints at this time Physical Exam Vital signs: Vital Signs 06/16/18 12:00 06/16/18 14:06 06/16/18 15:19 Temperature 97.3 F L Pulse Rate 82 73 Respiratory Rate 20 Blood Pressure 148/69 H Pulse Oximetry 97 97 06/16/18 16:00 06/16/18 18:00 06/16/18 20:00 Temperature 97.6 F 97.9 F Pulse Rate 78 75 81 Respiratory Rate 18 18 Blood Pressure 122/63 128/69 Pulse Oximetry 96 96 06/17/18 00:00 06/17/18 04:00 06/17/18 08:00 Temperature 98.1 F 96.8 F L 97.3 F L Pulse Rate 76 66 77 Respiratory Rate 16 18 18 Blood Pressure 135/71 148/90 H 148/95 H Pulse Oximetry 97 97 97 Intake & Output 06/16/18 06/17/18 06/17/18 18:59 06:59 18:59 Intake Total 810 / 810 Balance 810 / 810 Intake: IV 810 / 810 NS Inj 1,000 ML @ 45 mls/hr IV. 810 / 810 CONT .[id number] [facility] Rx#:[id number] Other: # Voids 10 2 Date of Last Bowel Movement 06/14/18 # Bowel Movements 0 0 Narrative: GENERAL: This is a well-nourished, well-developed patient CARDIOVASCULAR: Regular rate and rhythm RESPIRATORY: Clear to auscultation. Breath sounds equal bilaterally. GASTROINTESTINAL: Abdomen soft, non-tender, nondistended. Normal active bowel sounds MUSCULOSKELETAL: Extremities without clubbing, cyanosis. left knee mild edema NEURO: Alert & Oriented. Moves all ext x4. Results - Labs CBC & Chem 7: 06/17/18 10:00 06/17/18 10:00 Assessment and Plan - Plan 67-year-old female with past medical history significant for coronary artery disease with angioplasty x2, hypertension, COPD, asthma, prediabetes, hypothyroidism, and chronic hyponatremia who presents to the emergency department under [place] act. Patient apparently had become depressed and had plans of jumping off of a hotel balcony. Long enforcement was called and patient was grabbed and pulled to safety and not brought to the emergency department for further evaluation. Baseline lab work in the emergency department revealed mild leukocytosis and critical hyponatremia with sodium level 123. T bili minimally elevated at 1.1 and TSH 16.3. Urinalysis and toxicology screen negative. Symptomatic hyponatremia, acute on chronic - Na on admission 123 -> 128 (06/06) - recheck in AM -> 129 (06/17) -Review of medical records show patient sodium level 128 back on 05/08/18 -Patient reports chronic hyponatremia -urine sodium 19, urine osmolality 276, serum osmolality 270 -Patient received 500 mL bolus of NS in the emergency department -NS at 45 mL's per hour DC'd 06/16 -Follow sodium levels - 1200 ml fluid restriction Hypothyroidism -Patient reports she was taking nature thyroid supplement at home -patient started on levothyroxine 100 mcg daily, continue - patient will need TSH rechecked in 6 weeks results to PCP, Patient reports PCP Dr. Carlos COPD/asthma, chronic and stable -Continue as needed albuterol inhaler and Symbicort -Nasal cannula if needed Hypertension/CAD -Increase losartan to 25 mg BID, patient reports that she was taking Losartan 25 mg BID at home and BP running on the high side Suicidal ideation Marcella acted -One-on-one sitter for monitoring Consult psychiatry, assistance greatly appreciated, plan to DC to inpatient psych once Na stable -Head CT scan negative, knee x-ray with mild degenerative changes and small effusion to right knee -dr. Dhaliwal recommended: Effexor 37.5 mg daily for depression, as well as clonazepam 0.5 mg twice daily for anxiety DVT prophylaxissubcu heparin Discussed Condition With: Patient, nurse, Dr. Dhaliwal and Supervising physician Dr. Leyva Plan to DC to med/psych- no bed available today
[2018-06-17] MEDS: clonazePAM 0.5 MG Tablet PO SCH ×2 (11:18→21:27)
[2018-06-17] MEDS: Venlafaxine XR 37.5 MG Capsule PO SCH (11:18)
[2018-06-17 11:27] LABS: Baso # (Auto) 0.1 th/mm3 (0.0-0.2); Baso % (Auto) 0.9 % (0.0-2.0); Eos % (Auto) 0.4 % (0.0-4.0); Hematocrit 37.1 % (35.0-46.0); Hemoglobin 13.1 gm/dL (11.6-15.3); Lymph # (Auto) 2.1 th/mm3 (1.0-4.8); Lymph % (Auto) 33.9 % (9.0-44.0); Mean Corpuscular HGB Conc 35.4 % (32.0-36.0); Mean Corpuscular Hemoglobin 31.7 pg (27.0-34.0); Mean Corpuscular Volume 89.6 fL (80.0-100.0); Mono # (Auto) 0.5 th/mm3 (0.0-0.9); Mono % (Auto) 7.4 % (0.0-8.0); Neut # (Auto) 3.6 th/mm3 (1.8-7.7); Neut % (Auto) 57.4 % (16.0-70.0); Platelet Count 351 th/mm3 (150-450); Red Blood Count 4.14 mil/mm3 (4.00-5.30); Red Cell Distribution Width 16.1 % (11.6-17.2); White Blood Count 6.3 th/mm3 (4.0-11.0)
[2018-06-17 11:51] LABS: Calcium 8.5 mg/dL (8.5-10.1); Carbon Dioxide 26.6 meq/L (21.0-32.0); Potassium 3.6 meq/L (3.5-5.1)
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
[2018-06-18 04:47] LABS: Calcium 8.3 mg/dL (8.5-10.1); Potassium 4.4 meq/L (3.5-5.1)
[2018-06-18] MEDS: Acetaminophen 325 MG Tablet PO PRN (05:57)
[2018-06-18] MEDS: Levothyroxine 100 MCG Tablet PO SCH (05:57)
[2018-06-18] MEDS: Heparin - SQ 10,000 UNITS/ML Vial SQ SCH (05:59)
[2018-06-18] MEDS ORDERED: Sodium Chlor 0.9% Inj 500 ML IV.CONT SCH (08:00)
[2018-06-18] MEDS: Senna/Docusate Sodium 8.6/50 MG Tablet PO SCH (09:16)
[2018-06-18] MEDS: clonazePAM 0.5 MG Tablet PO SCH (09:16)
[2018-06-18] MEDS: Venlafaxine XR 37.5 MG Capsule PO SCH (09:16)
[2018-06-18] MEDS: Budesonide-Formoterol 160/4.5 MCG 6 GM Inhaler INH SCH (09:17)
[2018-06-18 09:33] VITALS: BP 162/86; PULSE 74; RESP 18; TEMP 97.2; O2SAT 97
[2018-06-18] MEDS ORDERED: Sodium Chloride 1 GM Tablet PO SCH (10:15)
--- NOTE | 2018-06-18 10:16 | P.PN ---
Subjective Interval history: Follow up on patient under [place], hyponatremia, hypothyroidism. Patient seen and examined. States she feels so-so. Reports nausea last night but none this morning. She was able to eat all of breakfast without any difficulties. She reports occasional headaches but denies any presently. She reports dry cough, she says she feels like she needs to cough something up but can't. She denies any chest pain or dyspnea. She denies any fever or chills. She complains she feels dehydrated. Physical Exam Vital signs: Vital Signs 06/17/18 12:00 06/17/18 16:00 06/17/18 20:00 Temperature 97.9 F 97.9 F 97.6 F Pulse Rate 82 77 84 Respiratory Rate 18 18 18 Blood Pressure 134/74 116/66 138/72 Pulse Oximetry 96 97 96 06/17/18 23:29 06/18/18 00:00 06/18/18 04:00 Temperature 97.4 F L 97.8 F Pulse Rate 87 78 81 Respiratory Rate 16 16 Blood Pressure 134/80 107/71 Pulse Oximetry 95 98 06/18/18 08:00 Temperature 97.2 F L Pulse Rate 74 Respiratory Rate 18 Blood Pressure 162/86 H Pulse Oximetry 97 Intake & Output 06/17/18 06/18/18 06/18/18 18:59 06:59 18:59 Intake Total 360 / 360 Balance 360 / 360 Weight 61.9 kg Intake: Oral 360 / 360 Other: # Voids 7 15 Date of Last Bowel Movement 06/16/18 Narrative: GENERAL: WDWN female patient, INAD. Awake and alert. Sitter is at the bedside. SKIN: Warm and dry. No generalized rash. HEENT: Atraumatic. Normocephalic. Pupils equal and round. No scleral icterus. No injection or drainage. No nasal bleeding or discharge. Mucous membranes pink and moist. NECK: Trachea midline. CARDIOVASCULAR: Regular rate and rhythm. RESPIRATORY: No accessory muscle use. Clear to auscultation. Breath sounds equal bilaterally. GASTROINTESTINAL: Abdomen soft, non-tender, nondistended. +BS. MUSCULOSKELETAL: Extremities without clubbing, cyanosis, or edema. No obvious deformities. NEUROLOGICAL: Awake and alert. No obvious cranial nerve deficits. Motor grossly within normal limits. Able to move all extremities spontaneously. Normal speech. PSYCHIATRIC: Anxious appearing. Cooperative with exam. Results - Labs CBC & Chem 7: 06/17/18 10:00 06/18/18 04:07 Laboratory Results - last 24 hr 06/17/18 06/17/18 06/18/18 10:00 10:00 04:07 WBC 6.3 RBC 4.14 Hgb 13.1 Hct 37.1 MCV 89.6 MCH 31.7 MCHC 35.4 RDW 16.1 Plt Count 351 MPV 7.0 Neut % (Auto) 57.4 Lymph % (Auto) 33.9 [place] % (Auto) 7.4 Eos % (Auto) 0.4 Baso % (Auto) 0.9 Neut # (Auto) 3.6 Lymph # (Auto) 2.1 [place] # (Auto) 0.5 Eos # (Auto) 0.0 Baso # (Auto) 0.1 WBC Differential . Differential Comment Auto diff final Sodium 129 L 127 L Potassium 3.6 4.4 D Chloride 92 L 94 L Carbon Dioxide 26.6 27.0 Anion Gap 10 6 BUN 9 14 Creatinine 0.73 0.68 Estimated GFR 80 L 87 L Random Glucose 147 H 78 Calcium 8.5 8.3 L - Procedures None Assessment and Plan - Assessment (1) Hyponatremia Code(s): E87.1 - Hypo-osmolality and hyponatremia Status: Acute (2) Elevated TSH Code(s): R79.89 - Other specified abnormal findings of blood chemistry Status : Acute - Plan 67-year-old female with past medical history significant for coronary artery disease with angioplasty x2, hypertension, COPD, asthma, prediabetes, hypothyroidism, and chronic hyponatremia who presents to the emergency department under [place]. Patient apparently had become depressed and had plans of jumping off of a hotel balcony. Law enforcement was called and patient was grabbed and pulled to safety and brought to the emergency department for further evaluation. Baseline lab work in the emergency department revealed mild leukocytosis and critical hyponatremia with sodium level 123. T bili minimally elevated at 1.1 and TSH 16.3. Urinalysis and toxicology screen negative. Symptomatic hyponatremia, acute on chronic -Na on admission 123, repeat sodium 127 this am -Review of medical records show patient sodium level 128 back on 05/08/18 -Patient reports chronic hyponatremia -urine sodium 19, urine osmolality 276, serum osmolality 270 -continue on fluid restrictions -give 500ml NS IVF -start on salt tablets 1gm BID -Follow sodium levels Hypothyroidism TSH 16.300 Patient reports she was taking nature thyroid supplement at home -patient started on levothyroxine 100 mcg daily, continue -patient will need TSH rechecked in 6 weeks results to PCP, Patient reports PCP Dr. Carlos COPD/asthma, chronic and stable -Continue as needed albuterol inhaler and Symbicort -Nasal cannula if needed Hypertension/CAD -Continue on losartan 25 mg BID -Clonidine prn with parameters -continue to monitor BP and adjust treatment accordingly Depression Suicidal ideation Marcella acted -One-on-one sitter for monitoring Psychiatry following, assistance greatly appreciated, plan to DC to inpatient med psych once bed available -Dr. Dhaliwal recommended: Effexor 37.5 mg daily for depression, as well as clonazepam 0.5 mg twice daily for anxiety DVT prophylaxissubcu heparin Code Status: Full Discussed Condition With: patient, nursing staff, Dr. Leyva Discharge Planning: Cleared for discharge to med psych once bed available
== END 2018-06-18 12:23 ==
LOC: NEPD 13:05 → NEDA 16:17 → N04 19:04
PROVIDERS: ADMIT Internal Medicine; ATTEND Internal Medicine

== ENCOUNTER 2018-06-18 11:00 | Inpatient (IN) ==
[2018-06-18] MEDS ORDERED: Senna/Docusate Sodium 8.6/50 MG Tablet PO PRN (13:45)
[2018-06-18] MEDS ORDERED: Aluminum/Magnesium/Simethacone Susp 30 ML UDC PO PRN (13:45)
[2018-06-18] MEDS ORDERED: Bisacodyl 10 MG Supp RECTAL PRN (13:45)
[2018-06-18] MEDS: Acetaminophen 325 MG Tablet PO PRN (17:18)
[2018-06-18] MEDS: Budesonide-Formoterol 160/4.5 MCG 6 GM Inhaler INH SCH (21:00)
[2018-06-18] MEDS: clonazePAM 0.5 MG Tablet PO SCH (21:00)
[2018-06-18] MEDS: Sodium Chloride 1 GM Tablet PO SCH (21:00)
[2018-06-19] MEDS: Levothyroxine 100 MCG Tablet PO SCH (06:16)
[2018-06-19 07:43] LABS: Anion Gap 9 meq/L (5-15); Blood Urea Nitrogen 9 mg/dL (7-18); Calcium 8.3 mg/dL (8.5-10.1); Carbon Dioxide 26.8 meq/L (21.0-32.0); Chloride 88 meq/L (98-107); Glomerular Filtration Rate Greater Than 89 mL/min (>89); Glucose,Random 85 mg/dL (74-106); Potassium 4.2 meq/L (3.5-5.1)
[2018-06-19 07:52] LABS: Sodium 124 meq/L (136-145)
[2018-06-19] MEDS: Sodium Chloride 1 GM Tablet PO SCH ×2 (08:35→20:32)
[2018-06-19] MEDS: Venlafaxine XR 37.5 MG Capsule PO SCH (08:35)
[2018-06-19] MEDS: clonazePAM 0.5 MG Tablet PO SCH ×2 (08:35→20:32)
[2018-06-19] MEDS: Budesonide-Formoterol 160/4.5 MCG 6 GM Inhaler INH SCH ×2 (08:36→20:32)
--- NOTE | 2018-06-19 15:42 | P.CON ---
History of Present Illness Service: Hospitalists Consult date: 06/19/18 Requesting Physician: Palmer Gonzalez Reason for Consult: Continue care from medical floor Primary Care Provider: UNKNOWN Chief Complaint: hyponatremia, suicidal ideations History of Present Illness: 67-year-old female with past medical history significant for coronary artery disease with angioplasty x2, hypertension, COPD, asthma, prediabetes, hypothyroidism, and chronic hyponatremia, admitted to inpatient medical psychiatry unit due to suicidal ideations. Hospitalist consulted for medical management. Patient was recently admitted to the hospital, being treated for symptomatic hyponatremia, hypothyroidism, and uncontrolled blood pressures. Patient is currently seen ambulating her room in medical psychiatric unit. She states she does get some occasional lightheadedness but denies any currently. She denies any other medical complaints including no fever/chills, headache, chest pain, palpitations, shortness of breath, abdominal pain, or urinary complaints. She is requesting her rescue inhaler restarted for her COPD. Denies any current wheezing or cough. She has no other medical complaints at this time. Review of Systems All other systems reviewed negative except as stated in HPI PMFSH - History History Provided By: Patient - Medical History Medical History: Medical History (Last Reviewed 06/19/18 @ 17:23 by Mela Rivas) Asthma CAD (coronary artery disease) COPD (chronic obstructive pulmonary disease) Coronary artery disease Diabetes Hyperthyroidism Hypothyroidism Lung nodules Myocardial infarction Prediabetes Uterine cancer - Surgical History Surgical History: Surgical History (Last Reviewed 06/19/18 @ 17:23 by Mela Rivas) History of angioplasty History of facial surgery History of gynecologic surgery History of tonsillectomy - Family History Family History: Family History (Last Reviewed 06/19/18 @ 17:23 by Mela Rivas) Father Colon cancer Mother Pancreatic cancer Mother Pancreatic cancer - Social History I have reviewed the patient's Social History: Yes - Tobacco History Second Hand Smoke Exposure: Yes Tobacco Use In Past 30 Days: No Smoking Status: Former smoker Tobacco Type: Cigarettes - Alcohol History How Often Do You Have a Drink Containing Alcohol: Never - Substance Use History Substance History: Past History - Substance Use Type Other Status: Sustained Remission Comment: Patient reports "I did about everything as a teenager, but that was it...never done it (substances) since". Patient was unable to provide [employer] [place] specific substances used a teenager. Patient denies IV use past/present. Medications and Allergies Active Medications: Active Medications Acetaminophen (Tylenol) 650 mg PO Q4H PRN PRN Reason: Pain 1-5 or Temp >101F Last Admin: 06/18/18 17:18 Dose: 650 mg Al Hydrox/Mg Hydrox/Simethicone (Mag-Al Plus Susp Liq) 30 ml PO Q6H PRN PRN Reason: DYSPEPSIA Al Hydroxide/Mg Hydroxide (Milk Of Magnesia Liq) 30 ml PO Q12H PRN PRN Reason: Mild Constipation Albuterol (Ventolin Hfa Inh) 1 puff INH Q6H PRN PRN Reason: SHORTNESS OF BREATH Bisacodyl (Dulcolax Supp) 10 mg RECTAL DAILY PRN PRN Reason: SEVERE CONSITIPATION Budesonide/Formoterol Fumarate (Symbicort 160/4.5 Mcg Inh) 1 puff INH BID [facility] Last Admin: 06/19/18 08:36 Dose: 1 puff Clonazepam (Klonopin) 0.5 mg PO Q12HR [facility] Last Admin: 06/19/18 08:35 Dose: 0.5 mg Diphenhydramine HCl (Benadryl) 50 mg PO HS PRN PRN Reason: INSOMNIA Lactulose (Lactulose Liq) 30 ml PO DAILY PRN PRN Reason: SEVERE CONSITIPATION Levothyroxine Sodium (Synthroid) 100 mcg PO DAILY@0600 [facility] Last Admin: 06/19/18 06:16 Dose: 100 mcg Losartan Potassium (Cozaar) 25 mg PO BID [facility] Last Admin: 06/19/18 08:35 Dose: 25 mg Senna/Docusate Sodium (Tasneem-Colace) 1 tab PO BID PRN PRN Reason: CONSTIPATION Sennosides (Senokot) 17.2 mg PO Q12H PRN PRN Reason: Moderate Constipation Sodium Chloride (Sodium Chloride) 1 gm PO BID [facility] Last Admin: 06/19/18 08:35 Dose: 1 gm Venlafaxine HCl (Effexor Xr) 37.5 mg PO DAILY [facility] Last Admin: 06/19/18 08:35 Dose: 37.5 mg Allergies Allergy/AdvReac Type Severity Reaction Status Date / Time codeine AdvReac Mild Nausea/Vomi Verified 06/15/18 13:18 ting Home Medications Medication Instructions Recorded Confirmed Type albuterol sulfate [Ventolin HFA] 1 puff INHALATION Q4-6H PRN 06/15/18 06/15/18 History budesonide-formoterol [Symbicort] 1 puff INHALATION BID 06/15/18 06/15/18 History losartan 25 mg PO BID 06/15/18 06/17/18 History Physical Exam Vital signs: Vital Signs 06/18/18 17:42 06/19/18 05:29 Temperature 97.4 F L 97.5 F L Pulse Rate 92 H 70 Respiratory Rate 17 17 Blood Pressure 145/84 H 165/79 H Pulse Oximetry 96 95 Intake & Output 06/18/18 06/19/18 06/19/18 18:59 06:59 18:59 Intake Total 480 / 480 120 / 120 Balance 480 / 480 120 / 120 Weight 135 kg Intake: Oral 480 / 480 120 / 120 Other: Weight On Admission 135 kg Narrative: GENERAL: Well-nourished, well-developed middle-aged female patient in [facility]. Ambulating her room. SKIN: Warm and dry. No rash. HEENT: Normocephalic. Atraumatic. Pupils equal and round. Mucous membranes pink and moist. NECK: Supple. Trachea midline. CARDIOVASCULAR: Regular rate and rhythm. No murmur appreciated. RESPIRATORY: No accessory muscle use. Clear to auscultation. Breath sounds equal bilaterally. GASTROINTESTINAL: Abdomen soft, non-tender, nondistended. Normoactive bowel sounds x4. MUSCULOSKELETAL: No obvious deformities. Extremities without clubbing, cyanosis , or edema. NEUROLOGICAL: Awake and alert. No obvious cranial nerve deficits. Motor grossly within normal limits. Moving all extremities spontaneously. Normal speech. Assessment and Plan - Plan 67-year-old female with past medical history significant for coronary artery disease with angioplasty x2, hypertension, COPD, asthma, prediabetes, hypothyroidism, and chronic hyponatremia who presents to the emergency department under [place]. Patient apparently had become depressed and had plans of jumping off of a hotel balcony. Law enforcement was called and patient was grabbed and pulled to safety and brought to the emergency department for further evaluation. Baseline lab work in the emergency department revealed mild leukocytosis and critical hyponatremia with sodium level 123. T bili minimally elevated at 1.1 and TSH 16.3. Urinalysis and toxicology screen negative. Symptomatic hyponatremia, acute on chronic: EMR reviewed, hx of chronic hyponatremia baseline around 128 -Na 124 -urine sodium 19, urine osmolality 276, serum osmolality 270 -continue on fluid restrictions -started on salt tablets 1gm BID -Follow sodium levels daily until stable Hypothyroidism: acute. TSH 16.300 -patient started on levothyroxine 100 mcg daily, continue -patient will need TSH rechecked in 6 weeks results to PCP, Patient reports PCP Dr. Carlos COPD/asthma, chronic and stable -Continue as needed albuterol inhaler and Symbicort -stable on room air Hypertension/CAD -Continue on losartan 25 mg BID -Clonidine prn with parameters -continue to monitor BP and adjust treatment accordingly Depression/Suicidal ideation -currently admitted to med/psych unit -management by psychiatry -current on Effexor and clonazepam DVT prophylaxispatient is ambulatory
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
[2018-06-20] MEDS: Levothyroxine 100 MCG Tablet PO SCH (06:57)
[2018-06-20 08:38] LABS: Anion Gap 8 meq/L (5-15); Blood Urea Nitrogen 9 mg/dL (7-18); Calcium 8.6 mg/dL (8.5-10.1); Carbon Dioxide 28.2 meq/L (21.0-32.0); Chloride 86 meq/L (98-107); Glomerular Filtration Rate Greater Than 89 mL/min (>89); Glucose,Random 90 mg/dL (74-106); Potassium 4.2 meq/L (3.5-5.1)
[2018-06-20 08:43] LABS: Sodium 122 meq/L (136-145)
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
[2018-06-20] MEDS: clonazePAM 0.5 MG Tablet PO SCH ×2 (09:45→19:51)
[2018-06-20] MEDS: Venlafaxine XR 37.5 MG Capsule PO SCH (09:45)
[2018-06-20] MEDS: Sodium Chloride 1 GM Tablet PO SCH ×2 (09:46→20:20)
[2018-06-20] MEDS: Budesonide-Formoterol 160/4.5 MCG 6 GM Inhaler INH SCH ×2 (09:46→20:20)
[2018-06-20] MEDS ORDERED: Sodium Chlor 0.9% Inj 500 ML IV.SIG ONE (10:00)
[2018-06-20 13:26] LABS: Sodium 123 meq/L (136-145)
[2018-06-20] MEDS: Acetaminophen 325 MG Tablet PO PRN ×2 (15:41→19:51)
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
--- NOTE | 2018-06-20 20:31 | MB ---
cc: Guy Lemons MD DATE: 06/20/2018 REASON FOR CONSULTATION: Hyponatremia for evaluation. HISTORY OF PRESENT ILLNESS: This is a 67-year-old female with past medical history of bronchial asthma, chronic obstructive pulmonary disease, hypertension, ischemic heart disease with history of angioplasty, hypothyroidism, chronic hyponatremia who was admitted under the psych after she was [place] A[place]. I was called to see the patient because of low sodium level. The patient has chronically low sodium level and the sodium level has been in the range of 122-129 since she has been here. Even in April of this year it was 128. The patient knows that she has been chronically having low sodium level, but she was not taking any medicine for that. She admits that she is not eating well and she has been drinking a lot of fluid. The patient was [place] A[place] because she expressed a plan of jumping off from a hotel balcony. PAST MEDICAL HISTORY: Hypertension, diabetes mellitus, hypothyroidism, chronic obstructive pulmonary disease, bronchial asthma, ischemic heart disease, history of uterine cancer, chronic hyponatremia. PAST SURGICAL HISTORY: Tonsillectomy, facial surgery, cardiac catheterization with angioplasty. REVIEW OF SYSTEMS: The patient denies any headache, dizziness, and blurring of vision. She has generalized weakness, feeling tired. Her appetite is not very good. She has occasional nausea. There is no vomiting. No history of diarrhea. No shortness of breath. No chest pain. No palpitation. She was drinking more fluid, but she has been started on fluid restriction of 1200 mL since yesterday. SOCIAL HISTORY: The patient is a chronic smoker. There is no history of heavy alcoholism. FAMILY HISTORY: Noncontributory. ALLERGIES: SHE HAS AN ALLERGY TO CODEINE. MEDICATIONS: Currently she is on following medications: 1. Tylenol as needed. 2. Ventolin inhaler as needed. 3. Dulcolax for constipation p.r.n. 4. Klonopin 0.5 mg b.i.d. 5. Benadryl 50 mg at bedtime. 6. Lactulose 30 mL p.r.n. 7. Levothyroxine 100 mcg daily. 8. Losartan 25 mg b.i.d. 9. Senokot 17.2 mg every 12 hours. 10. Effexor 37.5 mg daily. PHYSICAL EXAMINATION: GENERAL: The patient is awake and alert. She is not in acute distress. VITAL SIGNS: Blood pressure is 133/71, temperature is 97.6, oxygen saturation is 96%. HEENT: Pupils are mid constricted. Nonicteric sclerae. Conjunctivae are pink. NECK: Supple. JVD is not elevated. LUNGS: The patient has bilateral good air entry with occasional wheezing. HEART: S1, S2. Regular rate and rhythm. ABDOMEN: Soft and lax. There is no tenderness. Bowel sounds positive. EXTREMITIES: There is no pedal edema. LABORATORY DATA: CBC was done 3 days ago, which showed WBC count 6.3, hemoglobin 13.1, platelet count of 351. Sodium 123, potassium 4.2, chloride 86, bicarbonate 28.2, BUN 9, creatinine 0.6. Serum osmolality is 263, calcium is 8.6, magnesium 2.4, total bilirubin is 1.1, AST 37, ALT is 40, ammonia 14, TSH is 16.3. Urine analysis showing a specific gravity 1.008 with moderate blood, RBC 3, urine osmolality was 432 and urine sodium was 76. Toxicology screen showing salicylate level of 3.4. Others were all negative. IMAGING STUDIES: The patient had a CT scan of the brain done on admission, which shows that she has no acute intracranial abnormality. ASSESSMENT AND PLAN: 1. Hyponatremia. 2. Hypertension. 3. Hypothyroidism. 4. [place] Acted due to suicidal ideation. 5. Adjustment disorder with depression. The patient has chronically low sodium. She has history of depression and has been on Effexor, which is known to cause hyponatremia. In some cases is also reported. Clinically, the patient is euvolemic. Her urine osmolarity is higher than the serum osmolarity. She has an element of excessive ADH, but her TSH was very high, so this needs to be corrected first. I agree with continuing the fluid restriction. If the sodium remains low, I will add oral sodium chloride tablet and if it is not improving, then consider stopping the Effexor. Thank you for the consultation. I will follow the patient while she is in the hospital. Adán Lemons MD AQJ/sv/do , 07:20 PM , 07:33 PM
--- NOTE | 2018-06-20 21:56 | P.PNPSY ---
Subjective Remarks: Patient seen for follow-up, chart reviewed. Discussion with nursing staff reported that patient patient slept well last evening. Patient was found lying hospital bed noted B, cooperative. Patient states that she had been having muscle spasms all night stating feeling irritated due to the same. Patient continues to endorse suicide ideations but states "not really". Patient states that she regrets not having jumped early on prior to onlookers the police intervening in the suicide attempt prior to her admission. Patient request that medications be administered specifically Klonopin earlier in the evening so that she may be able to rest. Review of Systems All other systems reviewed negative except as stated in HPI Mental Status Examination Appearance: Appropriate Consciousness: Alert Orientation: Person, Place (At least) Motor Activity: Normal gait Speech: Unremarkable Language: Adequate Fund of Knowledge: Adequate (Fair) Attention and Concentration: Adequate Memory: Impaired Mood: Other (Dysphoric) Affect: Other (Dysphoric) Thought Process & Associations: Intact Thought Content: Preoccupations Hallucination Type: None Delusion Type: Other (Possible component of paranoid delusion, unclear) Suicidal Ideation: Yes Suicidal Plan: No Suicidal Intention: No (No reported urge to hurt self on inpatient unit.) Homicidal Ideation: No Homicidal Plan: No Homicidal Intention: No Insight: Poor Judgment: Poor Assessment and Plan - Assessment (1) Adjustment disorder with mixed disturbance of emotions and conduct Code(s): F43.25 - Adjustment disorder with mixed disturbance of emotions and conduct Status: Acute - Plan Plan: Patient continues to have depressed mood as well as continued thoughts of regarding not having jumped when she was on the balcony. She continues to have suicide ideations at this time. We will adjust clonazepam evening dose to 8 PM pain consult dietitian to improve p.o. intake. Continue recommendations per prior medical team. Continue current treatment. Continue to monitor mood and behavior. Discharge planning in progress. Justification for Continued Inpatient Stay: At risk of further decompensation at lower level care.
--- NOTE | 2018-06-21 02:03 | ECG ---
Date Performed: 06/18/2018 Time Performed: 14:09:26 PTAGE: 67 years EKG: Sinus rhythm NORMAL ECG NO PREVIOUS TRACING DOCTOR: Arron Cardona Interpretating Date/Time 06/21/2018 02:01:39
[2018-06-21] MEDS: Levothyroxine 100 MCG Tablet PO SCH (05:45)
[2018-06-21] MEDS: Sodium Chloride 1 GM Tablet PO SCH ×2 (10:34→20:30)
[2018-06-21] MEDS: Venlafaxine XR 37.5 MG Capsule PO SCH (10:34)
[2018-06-21] MEDS: Budesonide-Formoterol 160/4.5 MCG 6 GM Inhaler INH SCH ×2 (10:35→21:00)
[2018-06-21] MEDS: clonazePAM 0.5 MG Tablet PO SCH ×3 (10:37→20:30)
--- NOTE | 2018-06-21 13:03 | P.PN ---
Subjective Interval history: Follow up for hyponatremia, hypothyroidism. The patient is seen resting in bed, easily awakens. She states she is concerned about her sodium. She states she feels she is dehydrated since she is on fluid restrictions, reassured her that her renal function is wnl. She states she feels lightheaded sometimes but not right now while lying in bed. Denies any visual changes, chest pain, palpitations, shortness of breath, or abdominal complaints. Physical Exam Vital signs: Vital Signs 06/20/18 18:00 06/21/18 05:55 Temperature 97.6 F 98.4 F Pulse Rate 73 74 Respiratory Rate 17 16 Blood Pressure 133/71 131/78 Pulse Oximetry 96 96 Intake & Output 06/20/18 06/21/18 06/21/18 18:59 06:59 18:59 Intake Total 2140 / 2140 1180 / 1180 480 / 480 Balance 2140 / 2140 1180 / 1180 480 / 480 Weight 60.9 kg Intake: Oral 2140 / 2140 1180 / 1180 480 / 480 Other: # Voids 3 2 Narrative: GENERAL: Well-nourished, well-developed middle-aged female patient in [facility]. Resting in bed. SKIN: Warm and dry. No rash. HEENT: Normocephalic. Atraumatic. Pupils equal and round. Mucous membranes pink and moist. CARDIOVASCULAR: Regular rate and rhythm. No murmur appreciated. RESPIRATORY: No accessory muscle use. Clear to auscultation. Breath sounds equal bilaterally. GASTROINTESTINAL: Abdomen soft, non-tender, nondistended. Normoactive bowel sounds x4. MUSCULOSKELETAL: No obvious deformities. Extremities without clubbing, cyanosis , or edema. NEUROLOGICAL: Awake and alert. No obvious cranial nerve deficits. Motor grossly within normal limits. Moving all extremities spontaneously. Normal speech. Results - Labs CBC & Chem 7: 06/21/18 08:39 Laboratory Results - last 24 hr 06/20/18 06/20/18 06/20/18 11:48 13:30 13:30 Sodium 123 L* Cortisol Urine Osmolality 432 Ur Random Sodium 76 06/20/18 06/21/18 06/21/18 22:04 08:39 08:39 Sodium 127 L 125 L Cortisol 15.4 Urine Osmolality Ur Random Sodium Assessment and Plan - Plan 67-year-old female with past medical history significant for coronary artery disease with angioplasty x2, hypertension, COPD, asthma, prediabetes, hypothyroidism, and chronic hyponatremia who presents to the emergency department under [place]. Patient apparently had become depressed and had plans of jumping off of a hotel balcony. Law enforcement was called and patient was grabbed and pulled to safety and brought to the emergency department for further evaluation. Baseline lab work in the emergency department revealed mild leukocytosis and critical hyponatremia with sodium level 123. T bili minimally elevated at 1.1 and TSH 16.3. Urinalysis and toxicology screen negative. Symptomatic euvolemic hyponatremia, acute on chronic: EMR reviewed, hx of chronic hyponatremia baseline around 128 -Na 122 -continue on fluid restrictions -started on salt tablets 1gm BID -Follow sodium levels daily until stable -urine sodium 76, urine osmolality 432, serum osmolality 263 -will check cortisol level in am to eval for glucocorticoid deficiency -possible secondary to severe hypothyroidism, patient is s/p thyroidectomy, started on levothyroxine during this hospitalization -patient is on Effexor, possibly contributing -consult nephrology, greatly appreciate assistance -improving, Na 127 today Hypothyroidism: acute. TSH 16.300 -patient started on levothyroxine 100 mcg daily, continue -patient will need TSH rechecked in 6 weeks, results to PCP, Patient reports PCP Dr. Carlos COPD/asthma, chronic and stable -Continue as needed albuterol inhaler and Symbicort -stable on room air Hypertension/CAD -Continue on losartan 25 mg BID -Clonidine prn with parameters -continue to monitor BP and adjust treatment accordingly Depression/Suicidal ideation -currently admitted to med/psych unit -management by psychiatry -current on Effexor and clonazepam DVT prophylaxispatient is ambulatory
--- NOTE | 2018-06-21 16:36 | P.PNNP ---
Subjective Interval history: Resting comfortably. Denies any shortness of breath, chest pain, nausea, or vomiting. <Kathy Patrick - Last Filed: 06/21/18 16:28> Physical Exam Vital signs: Vital Signs 06/20/18 18:00 06/21/18 05:55 Temperature 97.6 F 98.4 F Pulse Rate 73 74 Respiratory Rate 17 16 Blood Pressure 133/71 131/78 Pulse Oximetry 96 96 Intake & Output 06/20/18 06/21/18 06/21/18 18:59 06:59 18:59 Intake Total 2140 / 2140 1180 / 1180 720 / 720 Balance 2140 / 2140 1180 / 1180 720 / 720 Weight 60.9 kg Intake: Oral 2140 / 2140 1180 / 1180 720 / 720 Other: # Voids 3 2 Narrative: GENERAL:Alert and oriented SKIN: Warm and dry. NECK: Supple, trachea midline. No JVD. CARDIOVASCULAR: Regular rate and rhythm without murmurs, gallops, or rubs. RESPIRATORY: Breath sounds equal bilaterally. No accessory muscle use. GASTROINTESTINAL: Abdomen soft, non-tender, nondistended. MUSCULOSKELETAL: No cyanosis, or edema. BACK: Nontender without obvious deformity. No CVA tenderness. <Kathy Patrick - Last Filed: 06/21/18 16:28> Vital signs: Vital Signs 06/23/18 05:51 Temperature 97.6 F Pulse Rate 72 Respiratory Rate 16 Blood Pressure 111/54 L Pulse Oximetry 94 L Intake & Output 06/22/18 06/23/18 06/23/18 18:59 06:59 18:59 Intake Total 1560 / 1560 240 / 240 260 / 260 Balance 1560 / 1560 240 / 240 260 / 260 Intake: Oral 1560 / 1560 240 / 240 260 / 260 Other: # Voids 2 1 <Guy Lemons - Last Filed: 06/23/18 18:39> Assessment and Plan - Assessment (1) Hyponatremia Code(s): E87.1 - Hypo-osmolality and hyponatremia Status: Acute (2) Elevated TSH Code(s): R79.89 - Other specified abnormal findings of blood chemistry Status : Acute (3) Adjustment disorder with depressed mood Code(s): F43.21 - Adjustment disorder with depressed mood Status: Acute - Plan Hyponatremia Chronically low sodium. Patient is euvolemic. Her urine osmolarity is higher than the serum osmolarity. She has an element of excessive ADH, but her TSH was very high, so this needs to be corrected first. Continue sodium chloride tablet Continue fluid restriction If continues to decrease consider stopping Effexor Labs in AM <Kathy Patrick - Last Filed: 06/21/18 16:28> - Assessment (1) Hyponatremia Code(s): E87.1 - Hypo-osmolality and hyponatremia Status: Acute (2) Elevated TSH Code(s): R79.89 - Other specified abnormal findings of blood chemistry Status : Acute (3) Adjustment disorder with depressed mood Code(s): F43.21 - Adjustment disorder with depressed mood Status: Acute - Plan Patient seen and examine, agree with above. Sodium is improving, continue fluid restriction and Nacl. <Guy Lemons - Last Filed: 06/23/18 18:39>
--- NOTE | 2018-06-21 19:07 | P.PNPSY ---
Subjective Remarks: Patient seen for follow-up, chart reviewed. Discussion with nursing staff reported that patient patient compliant with medications and slept last evening. Patient was found lying hospital bed patient states that he continues to have most bothersome at night, continues to regret not having having jumped when she had the opportunity. She states that she did not do it because there were too many onlookers and please had arrived. She states that she felt that because she did not have anything left referring to her diabetes still on her belongings being stolen as well she states that she is trying to find hope now. Patient states she continues to feel anxious throughout the day but states that despite her having these regrets of not having jumped she did not have any thoughts of hurting herself here in the hospital. Review of Systems All other systems reviewed negative except as stated in HPI Mental Status Examination Appearance: Appropriate Consciousness: Alert Orientation: Person, Place (At least) Motor Activity: Normal gait Speech: Unremarkable Language: Adequate Fund of Knowledge: Adequate (Fair) Attention and Concentration: Adequate Memory: Impaired Mood: Other (Dysphoric) Affect: Other (Dysphoric) Thought Process & Associations: Intact Thought Content: Preoccupations Hallucination Type: None Delusion Type: Other (Possible component of paranoid delusion, unclear) Suicidal Ideation: Yes Suicidal Plan: No Suicidal Intention: No (No reported urge to hurt self on inpatient unit.) Homicidal Ideation: No Homicidal Plan: No Homicidal Intention: No Insight: Poor Judgment: Poor Assessment and Plan - Assessment (1) Adjustment disorder with mixed disturbance of emotions and conduct Code(s): F43.25 - Adjustment disorder with mixed disturbance of emotions and conduct Status: Acute - Plan Plan: Wanting to be alive but denies any active thoughts of self-harm here in the hospital. We will discontinue one-to-one observation for now. Hospitalist input appreciated. We will discuss possibility of discontinuing Effexor as this agent along with the majority of SSRIs have risk of hyponatremia associated with this medication and will consider an alternative agent to address his depression such as quetiapine. We will await lab results for tomorrow morning to see if sodium levels continue to improve or worsen. We will add clonazepam 0.5 mg at 1500 hrs. for anxiety. Continue recommendations per prior medical team. Continue to monitor mood and behavior. Discharge planning a progress. Justification for Continued Inpatient Stay: At risk of further decompensation at lower level care.
[2018-06-21] MEDS: Acetaminophen 325 MG Tablet PO PRN (22:06)
[2018-06-22] MEDS: Levothyroxine 100 MCG Tablet PO SCH (06:35)
[2018-06-22 09:17] LABS: Baso # (Auto) 0.1 th/mm3 (0.0-0.2); Baso % (Auto) 0.7 % (0.0-2.0); Eos # (Auto) 0.1 th/mm3 (0.0-0.4); Eos % (Auto) 0.8 % (0.0-4.0); Hematocrit 43.8 % (35.0-46.0); Hemoglobin 15.4 gm/dL (11.6-15.3); Lymph # (Auto) 2.8 th/mm3 (1.0-4.8); Lymph % (Auto) 36.2 % (9.0-44.0); Mean Corpuscular HGB Conc 35.2 % (32.0-36.0); Mean Corpuscular Hemoglobin 31.7 pg (27.0-34.0); Mono # (Auto) 0.8 th/mm3 (0.0-0.9); Mono % (Auto) 10.6 % (0.0-8.0); Neut % (Auto) 51.7 % (16.0-70.0); Platelet Count 399 th/mm3 (150-450); Red Blood Count 4.87 mil/mm3 (4.00-5.30); White Blood Count 7.8 th/mm3 (4.0-11.0)
[2018-06-22] MEDS: Venlafaxine XR 37.5 MG Capsule PO SCH (09:31)
[2018-06-22] MEDS: Sodium Chloride 1 GM Tablet PO SCH ×2 (09:31→21:08)
[2018-06-22] MEDS: clonazePAM 0.5 MG Tablet PO SCH ×3 (09:31→21:08)
[2018-06-22] MEDS: Budesonide-Formoterol 160/4.5 MCG 6 GM Inhaler INH SCH ×2 (09:32→21:09)
[2018-06-22 09:49] LABS: Anion Gap 9 meq/L (5-15); Aspartate Aminotransferase 25 U/L (15-37); Blood Urea Nitrogen 14 mg/dL (7-18); Calcium 9.1 mg/dL (8.5-10.1); Carbon Dioxide 27.6 meq/L (21.0-32.0); Chloride 90 meq/L (98-107); Glomerular Filtration Rate 74 mL/min (>89); Glucose,Random 81 mg/dL (74-106); Magnesium 2.2 mg/dL (1.5-2.5); Sodium 127 meq/L (136-145)
[2018-06-22 09:50] LABS: Alanine Aminotransferase 47 U/L (10-53)
[2018-06-22 09:58] LABS: Alkaline Phosphatase 66 U/L (45-117); Total Protein 7.7 g/dL (6.4-8.2)
--- NOTE | 2018-06-22 15:27 | P.DIET ---
Nutritional Evaluation Type of nutrition evaluation: initial Nutrition consult regarding: Diet Evaluation Nutrition screening: [facility] Screening comments: 06/20/18 [facility] Poor PO Intake Subjective Subjective Comments: Pt says she is eating "but it's not good". Goes on to say that she needs vegetables and more choices. Food preferences taken. Objective - Diagnosis MDD recurrent severe w/psychosis - Objective % IBW: 103 Body Weight Used for Calculations: Actual (60.9kg) Energy Needs - Lower Range (kCal/kg): 25 Energy Needs - Upper Range (kCal/kg): 30 Lower Limit kCal/kg (kCals): 1,523 Upper Limit kCal/kg (kCals): 1,827 Lower Limit Protein Factor (Grams per Kg): 1.1 Upper Limit Protein Factor (Grams per Kg): 1.4 Lower Protein Needs (Protein): 67 Upper Protein Needs (Protein): 85 Dietitian Reviewed in Medical Record: Current diet, Curent medications, Intake & Output, Labs, Medical history Diet Order: Regular Fluid Restriction 1200ml Oral Diet Intake Amount: Fair 50-75% Objective Comments: PMH includes: Asthma, CAD, COPD, Pre-diabetes, hyperthyroidism, hypothryoidism, lung nodules, CT, uterine cancer Na 127, Glucose 81 Assessment Assessment: Pt is at nutritional risk r/t poor po intake. [place] pt food preferences. Pt provided w/a la carte menu options to assist w/increased po intake. Assess need for an oral nutritional supplement as appropriate. Recommendations: 1. [place] pt food preferences 2. Pt provided w/a la carte menu options to assist w/increased po intake 3. Assess need for an oral nutritional supplement as appropriate Dietitian to Monitor: Lab values, Electrolytes, Glucose level, Intake & Output, Weight change, PO Intake
--- NOTE | 2018-06-22 18:55 | P.PNIM ---
Subjective Interval history: Follow up for euvolemic hyponatremia, hypothyroidism and psychiatric disorder. Patient seen and examined, sitting on her bed, without any complaints. Patient denies any headache or dizziness, denies any pain, chest pain or shortness of breath. Patient denies abdominal pain, nausea or vomiting, diarrhea or constipation. Patient denies any fever or chills. Patient instructed not to drink too much due to the hyponatremia, patient verbalized understanding. Nurse reported no acute complaints. Nurse reported patient is compliant in taking her medications. Physical Exam Vital signs: Vital Signs 06/22/18 05:19 06/22/18 17:51 Temperature 97.6 F 98.2 F Pulse Rate 69 82 Respiratory Rate 18 18 Blood Pressure 132/82 147/77 H Pulse Oximetry 95 96 Intake & Output 06/21/18 06/22/18 06/22/18 18:59 06:59 18:59 Intake Total 1680 / 1680 720 / 720 1560 / 1560 Balance 1680 / 1680 720 / 720 1560 / 1560 Intake: Oral 1680 / 1680 720 / 720 1560 / 1560 Other: # Voids 4 3 Narrative: GENERAL: Well-developed, well-nourished, elderly female, sitting on her bed, in no apparent distress [] SKIN: Warm and dry. HEAD: Atraumatic. Normocephalic. EYES: Pupils equal and round. No scleral icterus. No injection or drainage. ENT: No nasal bleeding or discharge. Mucous membranes pink and moist. NECK: Trachea midline. No JVD. CARDIOVASCULAR: Regular rate and rhythm. RESPIRATORY: No accessory muscle use. Clear to auscultation. Breath sounds equal bilaterally. GASTROINTESTINAL: Abdomen soft, non-tender, nondistended. Hepatic and splenic margins not palpable. MUSCULOSKELETAL: Extremities without clubbing, cyanosis, or edema. No obvious deformities. NEUROLOGICAL: Awake and alert x3. No obvious cranial nerve deficits. Motor grossly within normal limits. Moving all 4 extremities normal speech. PSYCHIATRIC: Appropriate mood and affect; insight and judgment poor Results - Labs CBC & Chem 7: 06/22/18 08:55 06/22/18 08:55 Laboratory Results - last 24 hr 06/22/18 06/22/18 08:55 08:55 WBC 7.8 RBC 4.87 Hgb 15.4 H Hct 43.8 MCV 90.0 MCH 31.7 MCHC 35.2 RDW 16.0 Plt Count 399 MPV 7.0 Neut % (Auto) 51.7 Lymph % (Auto) 36.2 [place] % (Auto) 10.6 H Eos % (Auto) 0.8 Baso % (Auto) 0.7 Neut # (Auto) 4.0 Lymph # (Auto) 2.8 [place] # (Auto) 0.8 Eos # (Auto) 0.1 Baso # (Auto) 0.1 WBC Differential . Differential Comment Auto diff final Sodium 127 L Potassium 4.0 Chloride 90 L Carbon Dioxide 27.6 Anion Gap 9 BUN 14 Creatinine 0.78 Estimated GFR 74 L Random Glucose 81 Calcium 9.1 Magnesium 2.2 Total Bilirubin 0.7 AST 25 ALT 47 Alkaline Phosphatase 66 Total Protein 7.7 Albumin 4.0 TSH 10.600 H Assessment and Plan - Assessment (1) Hyponatremia Code(s): E87.1 - Hypo-osmolality and hyponatremia Status: Acute (2) Elevated TSH Code(s): R79.89 - Other specified abnormal findings of blood chemistry Status : Acute (3) Adjustment disorder with depressed mood Code(s): F43.21 - Adjustment disorder with depressed mood Status: Acute (4) Adjustment disorder with mixed disturbance of emotions and conduct Code(s): F43.25 - Adjustment disorder with mixed disturbance of emotions and conduct Status: Acute - Plan 67-year-old female with past medical history significant for coronary artery disease with angioplasty x2, hypertension, COPD, asthma, prediabetes, hypothyroidism, and chronic hyponatremia who presents to the emergency department under [place] act. Patient apparently had become depressed and had plans of jumping off of a hotel balcony. Law enforcement was called and patient was grabbed and pulled to safety and brought to the emergency department for further evaluation. Baseline lab work in the emergency department revealed mild leukocytosis and critical hyponatremia with sodium level 123. T bili minimally elevated at 1.1 and TSH 16.3. Urinalysis and toxicology screen negative. Symptomatic euvolemic hyponatremia, acute on chronic EMR reviewed, hx of chronic hyponatremia baseline around 128 -Na was 122, improved to 127 today -continue on fluid restrictions -started on salt tablets 1gm BID -Follow sodium levels daily until stable -urine sodium 76, urine osmolality 432, serum osmolality 263 -will check cortisol level in am to eval for glucocorticoid deficiency -possible secondary to severe hypothyroidism, patient is s/p thyroidectomy, started on levothyroxine during this hospitalization -patient is on Effexor, possibly contributing, discontinued today 06/22/18 -consult nephrology: Noted patient urine osmolality is higher than serum osmolality, patient has an element of excessive ADH. TSH is very high so needs to be corrected first. Recommended to continue sodium tablets, fluid restriction, and if continue to decrease sodium consider stopping Effexor -Monitor BMP Hypothyroidism: acute. TSH 16.300 -Continue on on levothyroxine 100 mcg daily, recently started -patient will need TSH rechecked in 6 weeks, results to PCP, Patient reports PCP Dr. Carlos COPD/asthma, chronic and stable -Continue as needed albuterol inhaler and Symbicort -stable on room air, no shortness of breath, no wheezes Monitor respiratory status Hypertension/CAD Blood pressure improving -Continue on losartan 25 mg BID -Clonidine prn with parameters -continue to monitor BP and adjust treatment accordingly Depression/Suicidal ideation -currently admitted to med/psych unit -management by psychiatry team -current on Effexor and clonazepam DVT prophylaxispatient is ambulatory Code Status: Full code Discussed Condition With: Patient and nurse
--- NOTE | 2018-06-22 19:26 | P.PNNP ---
Subjective Interval history: Patient seen, alert, eating better,a nd on fluid restriction. Physical Exam Vital signs: Vital Signs 06/22/18 05:19 06/22/18 17:51 Temperature 97.6 F 98.2 F Pulse Rate 69 82 Respiratory Rate 18 18 Blood Pressure 132/82 147/77 H Pulse Oximetry 95 96 Intake & Output 06/22/18 06/22/18 06/23/18 06:59 18:59 06:59 Intake Total 720 / 720 1560 / 1560 Balance 720 / 720 1560 / 1560 Intake: Oral 720 / 720 1560 / 1560 Other: # Voids 3 Narrative: GENERAL: Well-developed, well-nourished, elderly female, sitting on her bed, in no apparent distress [] SKIN: Warm and dry. HEAD: Atraumatic. Normocephalic. EYES: Pupils equal and round. No scleral icterus. No injection or drainage. ENT: No nasal bleeding or discharge. Mucous membranes pink and moist. NECK: Trachea midline. No JVD. CARDIOVASCULAR: Regular rate and rhythm. RESPIRATORY: No accessory muscle use. Clear to auscultation. Breath sounds equal bilaterally. GASTROINTESTINAL: Abdomen soft, non-tender, nondistended. Hepatic and splenic margins not palpable. MUSCULOSKELETAL: Extremities without clubbing, cyanosis, or edema. No obvious deformities. NEUROLOGICAL: Awake and alert x3. No obvious cranial nerve deficits. Motor grossly within normal limits. Moving all 4 extremities normal speech. PSYCHIATRIC: Appropriate mood and affect; insight and judgment poor Assessment and Plan - Assessment (1) Hyponatremia Code(s): E87.1 - Hypo-osmolality and hyponatremia Status: Acute (2) Elevated TSH Code(s): R79.89 - Other specified abnormal findings of blood chemistry Status : Acute (3) Adjustment disorder with depressed mood Code(s): F43.21 - Adjustment disorder with depressed mood Status: Acute - Plan Hyponatremia Chronically low sodium. Patient is euvolemic. Her urine osmolarity is higher than the serum osmolarity. She has an element of excessive ADH, but her TSH was very high, so this needs to be corrected first. Continue sodium chloride tablet Continue fluid restriction If continues to decrease consider stopping Effexor Na. is now better , 127. Told to follow fluid restriction.
[2018-06-22] MEDS: QUEtiapine 25 MG Tablet PO SCH (21:08)
[2018-06-22] MEDS: Acetaminophen 325 MG Tablet PO PRN (21:29)
--- NOTE | 2018-06-22 21:59 | P.PN ---
Subjective Interval history: NOT SEEN Physical Exam Vital signs: Vital Signs 06/22/18 05:19 06/22/18 17:51 Temperature 97.6 F 98.2 F Pulse Rate 69 82 Respiratory Rate 18 18 Blood Pressure 132/82 147/77 H Pulse Oximetry 95 96 Intake & Output 06/22/18 06/22/18 06/23/18 06:59 18:59 06:59 Intake Total 720 / 720 1560 / 1560 Balance 720 / 720 1560 / 1560 Intake: Oral 720 / 720 1560 / 1560 Other: # Voids 3 Narrative: GENERAL: Well-developed, well-nourished, elderly female, sitting on her bed, in no apparent distress SKIN: Warm and dry. CARDIOVASCULAR: Regular rate and rhythm. RESPIRATORY: No accessory muscle use. Clear to auscultation. Breath sounds equal bilaterally. GASTROINTESTINAL: Abdomen soft, non-tender, nondistended. MUSCULOSKELETAL: Extremities without clubbing, cyanosis, or edema. No obvious deformities. NEUROLOGICAL: Awake and alert x3. No obvious cranial nerve deficits. Motor grossly within normal limits. Moving all 4 extremities normal speech. PSYCHIATRIC: Appropriate mood and affect; insight and judgment poor Results - Labs CBC & Chem 7: 06/22/18 08:55 06/22/18 08:55 Laboratory Results - last 24 hr 06/22/18 06/22/18 08:55 08:55 WBC 7.8 RBC 4.87 Hgb 15.4 H Hct 43.8 MCV 90.0 MCH 31.7 MCHC 35.2 RDW 16.0 Plt Count 399 MPV 7.0 Neut % (Auto) 51.7 Lymph % (Auto) 36.2 [place] % (Auto) 10.6 H Eos % (Auto) 0.8 Baso % (Auto) 0.7 Neut # (Auto) 4.0 Lymph # (Auto) 2.8 [place] # (Auto) 0.8 Eos # (Auto) 0.1 Baso # (Auto) 0.1 WBC Differential . Differential Comment Auto diff final Sodium 127 L Potassium 4.0 Chloride 90 L Carbon Dioxide 27.6 Anion Gap 9 BUN 14 Creatinine 0.78 Estimated GFR 74 L Random Glucose 81 Calcium 9.1 Magnesium 2.2 Total Bilirubin 0.7 AST 25 ALT 47 Alkaline Phosphatase 66 Total Protein 7.7 Albumin 4.0 TSH 10.600 H Assessment and Plan - Assessment (1) Hyponatremia Code(s): E87.1 - Hypo-osmolality and hyponatremia Status: Acute (2) Elevated TSH Code(s): R79.89 - Other specified abnormal findings of blood chemistry Status : Acute (3) Adjustment disorder with depressed mood Code(s): F43.21 - Adjustment disorder with depressed mood Status: Acute (4) Adjustment disorder with mixed disturbance of emotions and conduct Code(s): F43.25 - Adjustment disorder with mixed disturbance of emotions and conduct Status: Acute - Plan 67-year-old female with past medical history significant for coronary artery disease with angioplasty x2, hypertension, COPD, asthma, prediabetes, hypothyroidism, and chronic hyponatremia who presents to the emergency department under [place]. Patient apparently had become depressed and had plans of jumping off of a hotel balcony. Law enforcement was called and patient was grabbed and pulled to safety and brought to the emergency department for further evaluation. Baseline lab work in the emergency department revealed mild leukocytosis and critical hyponatremia with sodium level 123. T bili minimally elevated at 1.1 and TSH 16.3. Urinalysis and toxicology screen negative. Symptomatic euvolemic hyponatremia, acute on chronic EMR reviewed, hx of chronic hyponatremia baseline around 128 -Na was 122, improved to 127 today -continue on fluid restrictions -started on salt tablets 1gm BID -Follow sodium levels daily until stable -urine sodium 76, urine osmolality 432, serum osmolality 263 -will check cortisol level in am to eval for glucocorticoid deficiency -possible secondary to severe hypothyroidism, patient is s/p thyroidectomy, started on levothyroxine during this hospitalization -patient is on Effexor, possibly contributing, discontinued today 06/22/18 -consult nephrology: Noted patient urine osmolality is higher than serum osmolality, patient has an element of excessive ADH. TSH is very high so needs to be corrected first. Recommended to continue sodium tablets, fluid restriction, and if continue to decrease sodium consider stopping Effexor -Monitor BMP Hypothyroidism: acute. TSH 16.300 -Continue on on levothyroxine 100 mcg daily, recently started -patient will need TSH rechecked in 6 weeks, results to PCP, Patient reports PCP Dr. Carlos COPD/asthma, chronic and stable -Continue as needed albuterol inhaler and Symbicort -stable on room air, no shortness of breath, no wheezes Monitor respiratory status Hypertension/CAD Blood pressure improving -Continue on losartan 25 mg BID -Clonidine prn with parameters -continue to monitor BP and adjust treatment accordingly Depression/Suicidal ideation -currently admitted to med/psych unit -management by psychiatry team -current on Effexor and clonazepam
--- NOTE | 2018-06-22 22:04 | P.PNPSY ---
Subjective Remarks: Patient seen for follow up; chart reviewed. Discussion with nursing staff reported that patient has been compliant medications continues to have hyponatremia, pleasant. Patient was found lying hospital bed noted B, cooperative. Patient states he slept less evening stating her mood has been okay" continues to have suicide ideations and continues report feeling depressed and continues to state regrets of having sold her home. Patient noted to be more organized and interviewed today. Patient reports tolerating medications well. Review of Systems All other systems reviewed negative except as stated in HPI Mental Status Examination Appearance: Appropriate Consciousness: Alert Orientation: Person, Place (At least) Motor Activity: Normal gait Speech: Unremarkable Language: Adequate Fund of Knowledge: Adequate (Fair) Attention and Concentration: Adequate Memory: Impaired Mood: Good Affect: Sad Thought Process & Associations: Intact Thought Content: Preoccupations Hallucination Type: None Delusion Type: Other (Possible component of paranoid delusion, unclear) Suicidal Ideation: Yes Suicidal Plan: No Suicidal Intention: No (No reported urge to hurt self on inpatient unit.) Homicidal Ideation: No Homicidal Plan: No Homicidal Intention: No Insight: Poor Judgment: Poor Assessment and Plan - Assessment (1) Adjustment disorder with mixed disturbance of emotions and conduct Code(s): F43.25 - Adjustment disorder with mixed disturbance of emotions and conduct Status: Acute - Plan Plan: Patient currently continued with depressed mood along with suicide ideation but appears to be improving. We will continue current treatment continue to monitor sodium levels. Patient will be discontinued on Effexor due to current hyponatremia and will start quetiapine 50 mg p.o. at bedtime. Continue rest of medications continue recommendations per prior medical team. Discharge planning a progress. Justification for Continued Inpatient Stay: At risk of further decompensation at lower level care.
[2018-06-23] MEDS: Levothyroxine 100 MCG Tablet PO SCH (06:32)
[2018-06-23 07:40] LABS: Calcium 8.4 mg/dL (8.5-10.1); Carbon Dioxide 26.7 meq/L (21.0-32.0)
[2018-06-23 07:50] LABS: Free T4 (Free Thyroxine) 1.03 ng/dL (0.76-1.46)
[2018-06-23] MEDS: Sodium Chloride 1 GM Tablet PO SCH ×2 (10:00→20:14)
[2018-06-23] MEDS: clonazePAM 0.5 MG Tablet PO SCH ×3 (10:00→20:14)
[2018-06-23] MEDS: Budesonide-Formoterol 160/4.5 MCG 6 GM Inhaler INH SCH ×2 (10:00→20:14)
--- NOTE | 2018-06-23 10:42 | P.PNNP ---
Subjective Interval history: Patient is alert, no SOB, eating well. Physical Exam Vital signs: Vital Signs 06/22/18 17:51 06/23/18 05:51 Temperature 98.2 F 97.6 F Pulse Rate 82 72 Respiratory Rate 18 16 Blood Pressure 147/77 H 111/54 L Pulse Oximetry 96 94 L Intake & Output 06/22/18 06/23/18 06/23/18 18:59 06:59 18:59 Intake Total 1560 / 1560 240 / 240 Balance 1560 / 1560 240 / 240 Intake: Oral 1560 / 1560 240 / 240 Other: # Voids 2 Narrative: GENERAL: Well-developed, well-nourished, elderly female, sitting on her bed, in no apparent distress SKIN: Warm and dry. CARDIOVASCULAR: Regular rate and rhythm. RESPIRATORY: No accessory muscle use. Clear to auscultation. Breath sounds equal bilaterally. GASTROINTESTINAL: Abdomen soft, non-tender, nondistended. MUSCULOSKELETAL: Extremities without clubbing, cyanosis, or edema. No obvious deformities. NEUROLOGICAL: Awake and alert x3. No obvious cranial nerve deficits. Motor grossly within normal limits. Moving all 4 extremities normal speech. PSYCHIATRIC: Appropriate mood and affect; insight and judgment poor Assessment and Plan - Assessment (1) Hyponatremia Code(s): E87.1 - Hypo-osmolality and hyponatremia Status: Acute (2) Elevated TSH Code(s): R79.89 - Other specified abnormal findings of blood chemistry Status : Acute (3) Adjustment disorder with depressed mood Code(s): F43.21 - Adjustment disorder with depressed mood Status: Acute - Plan Hyponatremia Chronically low sodium. Patient is euvolemic. Her urine osmolarity is higher than the serum osmolarity. She has an element of excessive ADH, but her TSH was very high, so this needs to be corrected first. Continue sodium chloride tablet Continue fluid restriction If continues to decrease consider stopping Effexor Na. continue to improve and now 129. Continue the fluid restriction. Try to keep Na. close to 130.
--- NOTE | 2018-06-23 11:05 | P.PNIM ---
Subjective Interval history: Gradually improving salt levels. Etiology may be related to hypothyroidism versus SSRI versus both. Improvements are good sign. Physical Exam Vital signs: Vital Signs 06/22/18 17:51 06/23/18 05:51 Temperature 98.2 F 97.6 F Pulse Rate 82 72 Respiratory Rate 18 16 Blood Pressure 147/77 H 111/54 L Pulse Oximetry 96 94 L Intake & Output 06/22/18 06/23/18 06/23/18 18:59 06:59 18:59 Intake Total 1560 / 1560 240 / 240 Balance 1560 / 1560 240 / 240 Intake: Oral 1560 / 1560 240 / 240 Other: # Voids 2 Narrative: GENERAL: NAD, A&Ox3 HEAD: Normocephalic. NECK: Supple, trachea midline. No lymphadenopathy. EYES: No scleral icterus. No injection or drainage. CARDIOVASCULAR: Regular rate and rhythm without murmurs, gallops, or rubs. RESPIRATORY: Breath sounds equal bilaterally. No accessory muscle use. GASTROINTESTINAL: Abdomen soft, non-tender, nondistended. MUSCULOSKELETAL: No cyanosis, or edema. SKIN: Warm and dry. NEURO: No focal neurological deficits. Results - Labs CBC & Chem 7: 06/22/18 08:55 06/23/18 06:37 Laboratory Results - last 24 hr 06/23/18 06:37 Sodium 129 L Potassium 5.0 D Chloride 94 L Carbon Dioxide 26.7 Anion Gap 8 BUN 17 Creatinine 0.76 Estimated GFR 76 L Random Glucose 96 Calcium 8.4 L Free T4 1.03 Assessment and Plan - Assessment (1) Hyponatremia Code(s): E87.1 - Hypo-osmolality and hyponatremia Status: Acute (2) Elevated TSH Code(s): R79.89 - Other specified abnormal findings of blood chemistry Status : Acute (3) Adjustment disorder with depressed mood Code(s): F43.21 - Adjustment disorder with depressed mood Status: Acute (4) Adjustment disorder with mixed disturbance of emotions and conduct Code(s): F43.25 - Adjustment disorder with mixed disturbance of emotions and conduct Status: Acute - Plan 67-year-old female with past medical history significant for coronary artery disease with angioplasty x2, hypertension, COPD, asthma, prediabetes, hypothyroidism, and chronic hyponatremia who presents to the emergency department under [place] act. Patient apparently had become depressed and had plans of jumping off of a hotel balcony. Law enforcement was called and patient was grabbed and pulled to safety and brought to the emergency department for further evaluation. Baseline lab work in the emergency department revealed mild leukocytosis and critical hyponatremia with sodium level 123. T bili minimally elevated at 1.1 and TSH 16.3. Urinalysis and toxicology screen negative. Hyponatremia Euvolemic Acute on chronic Prior baseline of hyponatremia at 128 may be related to previous hypothyroidism Continue to treat hypothyroidism Continue salt tabs Continue fluid restriction Effexor was discontinued for possible SSRI effect Hypothyroidism Continue levothyroxine Follow clinically This may be contributory to hyponatremia Outpatient TSH evaluation in approximately 6 weeks with PCP Further adjustments in levothyroxine could be considered at that time COPD asthma Continue albuterol Continue Symbicort Stable on room air for now Follow clinically Hypertension CAD Continue losartan Continue baseline treatment Follow blood pressures Adjust treatments as needed Depression Suicidal ideation Management per psychiatry Continue on Seroquel and clonazepam DVT prophylaxis SCDs
--- NOTE | 2018-06-23 17:16 | P.PNPSY ---
Subjective Remarks: Patient was seen and case discussed with nursing. We discussed the patient's intended suicide and resultant publicity. Patient regrets her actions and is no longer expressing thoughts of suicidal ideation intent or plan. She does remained depressed with a blunted affect. She is compliant on her medication and behaving well on the unit. Mental Status Examination Appearance: Appropriate Consciousness: Alert Orientation: Person, Place (At least), Date/Time Motor Activity: Normal gait Speech: Unremarkable Language: Adequate Fund of Knowledge: Adequate (Fair) Attention and Concentration: Adequate Memory: Impaired Mood: Other (Dysphoric) Affect: Other (Dysphoric) Thought Process & Associations: Intact Thought Content: Appropriate Hallucination Type: None Delusion Type: None Suicidal Ideation: No Suicidal Plan: No Suicidal Intention: No (No reported urge to hurt self on inpatient unit.) Homicidal Ideation: No Homicidal Plan: No Homicidal Intention: No Insight: Poor Judgment: Poor Assessment and Plan - Assessment (1) Adjustment disorder with mixed disturbance of emotions and conduct Code(s): F43.25 - Adjustment disorder with mixed disturbance of emotions and conduct Status: Acute - Plan Plan: Continue current treatment plan Justification for Continued Inpatient Stay: Patient would decompensate in a less restrictive setting
[2018-06-23] MEDS: Acetaminophen 325 MG Tablet PO PRN (18:12)
[2018-06-23] MEDS: QUEtiapine 25 MG Tablet PO SCH (20:14)
[2018-06-24] MEDS: Levothyroxine 100 MCG Tablet PO SCH (06:12)
[2018-06-24] MEDS: Sodium Chloride 1 GM Tablet PO SCH ×2 (09:40→20:16)
[2018-06-24] MEDS: clonazePAM 0.5 MG Tablet PO SCH ×3 (09:42→20:16)
[2018-06-24] MEDS: Budesonide-Formoterol 160/4.5 MCG 6 GM Inhaler INH SCH ×2 (09:47→20:16)
[2018-06-24 10:55] LABS: Baso # (Auto) 0.1 th/mm3 (0.0-0.2); Baso % (Auto) 0.8 % (0.0-2.0); Eos # (Auto) 0.1 th/mm3 (0.0-0.4); Eos % (Auto) 1.3 % (0.0-4.0); Hematocrit 39.4 % (35.0-46.0); Hemoglobin 13.3 gm/dL (11.6-15.3); Lymph # (Auto) 2.3 th/mm3 (1.0-4.8); Lymph % (Auto) 34.9 % (9.0-44.0); Mean Corpuscular HGB Conc 33.6 % (32.0-36.0); Mean Corpuscular Hemoglobin 30.9 pg (27.0-34.0); Mean Corpuscular Volume 91.8 fL (80.0-100.0); Mono # (Auto) 0.7 th/mm3 (0.0-0.9); Mono % (Auto) 10.3 % (0.0-8.0); Neut # (Auto) 3.4 th/mm3 (1.8-7.7); Neut % (Auto) 52.7 % (16.0-70.0); Platelet Count 355 th/mm3 (150-450); Red Cell Distribution Width 16.3 % (11.6-17.2); White Blood Count 6.5 th/mm3 (4.0-11.0)
--- NOTE | 2018-06-24 11:21 | P.PNPSY ---
Subjective Remarks: Patient was seen and case discussed with nursing. Patient is pleasant and cooperative with exam. She remains depressed feeling hopeless and helpless. She has fleeting suicidal ideation with a possible plan of walking into the ocean. She denies any active intent or plan of hurting herself here in the hospital. Patient says she does not want anybody to know that she is here. She is spending the day watching TV. Continues to be managed by the medical team for hyponatremia Mental Status Examination Appearance: Appropriate Consciousness: Alert Orientation: Person, Place (At least), Date/Time Motor Activity: Normal gait Speech: Unremarkable Language: Adequate Fund of Knowledge: Adequate (Fair) Attention and Concentration: Adequate Memory: Impaired Mood: Other (Dysphoric) Affect: Other (Dysphoric) Thought Process & Associations: Intact Thought Content: Appropriate Hallucination Type: None Delusion Type: None Suicidal Ideation: No Suicidal Plan: No Suicidal Intention: No (No reported urge to hurt self on inpatient unit.) Homicidal Ideation: No Homicidal Plan: No Homicidal Intention: No Insight: Poor Judgment: Poor Assessment and Plan - Assessment (1) Adjustment disorder with mixed disturbance of emotions and conduct Code(s): F43.25 - Adjustment disorder with mixed disturbance of emotions and conduct Status: Acute - Plan Plan: Continue current treatment plan Justification for Continued Inpatient Stay: Continue current treatment plan Discharge Planning: Patient would decompensate in a less restrictive setting
[2018-06-24 11:23] LABS: Alanine Aminotransferase 39 U/L (10-53); Albumin 3.5 g/dL (3.4-5.0); Anion Gap 9 meq/L (5-15); Aspartate Aminotransferase 18 U/L (15-37); Blood Urea Nitrogen 20 mg/dL (7-18); Calcium 8.5 mg/dL (8.5-10.1); Carbon Dioxide 27.8 meq/L (21.0-32.0); Chloride 97 meq/L (98-107); Glomerular Filtration Rate 87 mL/min (>89); Glucose,Random 104 mg/dL (74-106); Sodium 134 meq/L (136-145)
[2018-06-24 11:25] LABS: Alkaline Phosphatase 58 U/L (45-117); Total Protein 6.6 g/dL (6.4-8.2)
--- NOTE | 2018-06-24 11:43 | P.PNIM ---
Subjective Interval history: Further improvement in sodium levels. Sodium levels nearing normal limits. No fevers. Physical Exam Vital signs: Vital Signs 06/23/18 19:49 06/24/18 06:11 Temperature 97.9 F 97.7 F Pulse Rate 83 83 Respiratory Rate 16 18 Blood Pressure 131/81 118/70 Pulse Oximetry 97 98 Intake & Output 06/23/18 06/24/18 06/24/18 18:59 06:59 18:59 Intake Total 260 / 260 240 / 240 Balance 260 / 260 240 / 240 Intake: Oral 260 / 260 240 / 240 Other: # Voids 1 3 Results - Labs CBC & Chem 7: 06/24/18 10:33 06/24/18 10:33 Laboratory Results - last 24 hr 06/24/18 06/24/18 10:33 10:33 WBC 6.5 RBC 4.30 Hgb 13.3 Hct 39.4 MCV 91.8 MCH 30.9 MCHC 33.6 RDW 16.3 Plt Count 355 MPV 7.0 Neut % (Auto) 52.7 Lymph % (Auto) 34.9 [place] % (Auto) 10.3 H Eos % (Auto) 1.3 Baso % (Auto) 0.8 Neut # (Auto) 3.4 Lymph # (Auto) 2.3 [place] # (Auto) 0.7 Eos # (Auto) 0.1 Baso # (Auto) 0.1 WBC Differential . Differential Comment Auto diff final Sodium 134 L Potassium 4.0 D Chloride 97 L Carbon Dioxide 27.8 Anion Gap 9 BUN 20 H Creatinine 0.68 Estimated GFR 87 L Random Glucose 104 Calcium 8.5 Total Bilirubin 0.6 AST 18 ALT 39 Alkaline Phosphatase 58 Total Protein 6.6 D Albumin 3.5 Assessment and Plan - Assessment (1) Hyponatremia Code(s): E87.1 - Hypo-osmolality and hyponatremia Status: Acute (2) Elevated TSH Code(s): R79.89 - Other specified abnormal findings of blood chemistry Status : Acute (3) Adjustment disorder with depressed mood Code(s): F43.21 - Adjustment disorder with depressed mood Status: Acute (4) Adjustment disorder with mixed disturbance of emotions and conduct Code(s): F43.25 - Adjustment disorder with mixed disturbance of emotions and conduct Status: Acute - Plan 67-year-old female with past medical history significant for coronary artery disease with angioplasty x2, hypertension, COPD, asthma, prediabetes, hypothyroidism, and chronic hyponatremia who presents to the emergency department under [place] act. Patient apparently had become depressed and had plans of jumping off of a hotel balcony. Law enforcement was called and patient was grabbed and pulled to safety and brought to the emergency department for further evaluation. Baseline lab work in the emergency department revealed mild leukocytosis and critical hyponatremia with sodium level 123. T bili minimally elevated at 1.1 and TSH 16.3. Urinalysis and toxicology screen negative. Continue sodium supplements. Continue fluid restriction. Continue monitoring sodium levels. Continue Synthroid. Hyponatremia Euvolemic Acute on chronic Prior baseline of hyponatremia at 128 may be related to previous hypothyroidism Continue to treat hypothyroidism Continue salt tabs Continue fluid restriction Effexor was discontinued for possible SSRI effect Hypothyroidism Continue levothyroxine Follow clinically This may be contributory to hyponatremia Outpatient TSH evaluation in approximately 6 weeks with PCP Further adjustments in levothyroxine could be considered at that time COPD asthma Continue albuterol Continue Symbicort Stable on room air for now Follow clinically Hypertension CAD Continue losartan Continue baseline treatment Follow blood pressures Adjust treatments as needed Depression Suicidal ideation Management per psychiatry Continue on Seroquel and clonazepam DVT prophylaxis SCDs
[2018-06-24] MEDS: QUEtiapine 25 MG Tablet PO SCH (20:16)
[2018-06-25] MEDS: Levothyroxine 100 MCG Tablet PO SCH (05:50)
[2018-06-25] MEDS: Sodium Chloride 1 GM Tablet PO SCH ×2 (09:06→21:51)
[2018-06-25] MEDS: clonazePAM 0.5 MG Tablet PO SCH ×3 (09:09→20:00)
--- NOTE | 2018-06-25 09:10 | P.PN ---
Subjective Interval history: Follow up on patient with hyponatremia. Patient seen and examined. Patient says she is dehydrated. She is asking for a menu. She does not like the food she is being given at mealtime. She does not want to have any more labs drawn. She complains of chills but states the room is cold. She complains of headaches not relieved with Tylenol. She is a chronic migraine sufferer. She denies any chest pain or dyspnea. She denies any N/V or abdominal pain. Physical Exam Vital signs: Vital Signs 06/24/18 19:04 06/25/18 05:37 Temperature 97.2 F L 99.0 F Pulse Rate 78 89 Respiratory Rate 18 14 Blood Pressure 151/73 H 144/78 H Pulse Oximetry 98 94 L Intake & Output 06/24/18 06/25/18 06/25/18 18:59 06:59 18:59 Intake Total 720 / 720 250 / 250 Balance 720 / 720 250 / 250 Intake: Oral 720 / 720 150 / 150 Oral Supplement 100 / 100 Other: # Voids 3 2 Narrative: GENERAL: WDWN female patient, awake and alert. [place]. SKIN: Warm and dry. No generalized rash. HEENT: Atraumatic. Normocephalic. Pupils equal and round. No scleral icterus. No injection or drainage. No nasal bleeding or discharge. Mucous membranes pink and moist. NECK: Trachea midline. CARDIOVASCULAR: Regular rate and rhythm. RESPIRATORY: No accessory muscle use. Clear to auscultation. Breath sounds equal bilaterally. GASTROINTESTINAL: Abdomen soft, non-tender, nondistended. +BS. MUSCULOSKELETAL: Extremities without clubbing, cyanosis, or edema. No obvious deformities. NEUROLOGICAL: Awake and alert. No obvious cranial nerve deficits. Motor grossly within normal limits. Able to move all extremities spontaneously. Normal speech. PSYCHIATRIC: Calm and cooperative. Results - Labs CBC & Chem 7: 06/24/18 10:33 06/24/18 10:33 Laboratory Results - last 24 hr 06/24/18 06/24/18 10:33 10:33 WBC 6.5 RBC 4.30 Hgb 13.3 Hct 39.4 MCV 91.8 MCH 30.9 MCHC 33.6 RDW 16.3 Plt Count 355 MPV 7.0 Neut % (Auto) 52.7 Lymph % (Auto) 34.9 [place] % (Auto) 10.3 H Eos % (Auto) 1.3 Baso % (Auto) 0.8 Neut # (Auto) 3.4 Lymph # (Auto) 2.3 [place] # (Auto) 0.7 Eos # (Auto) 0.1 Baso # (Auto) 0.1 WBC Differential . Differential Comment Auto diff final Sodium 134 L Potassium 4.0 D Chloride 97 L Carbon Dioxide 27.8 Anion Gap 9 BUN 20 H Creatinine 0.68 Estimated GFR 87 L Random Glucose 104 Calcium 8.5 Total Bilirubin 0.6 AST 18 ALT 39 Alkaline Phosphatase 58 Total Protein 6.6 D Albumin 3.5 Assessment and Plan - Assessment (1) Hyponatremia Code(s): E87.1 - Hypo-osmolality and hyponatremia Status: Acute (2) Elevated TSH Code(s): R79.89 - Other specified abnormal findings of blood chemistry Status : Acute (3) Adjustment disorder with depressed mood Code(s): F43.21 - Adjustment disorder with depressed mood Status: Acute (4) Adjustment disorder with mixed disturbance of emotions and conduct Code(s): F43.25 - Adjustment disorder with mixed disturbance of emotions and conduct Status: Acute - Plan 67-year-old female with past medical history significant for coronary artery disease with angioplasty x2, hypertension, COPD, asthma, prediabetes, hypothyroidism, and chronic hyponatremia who presents to the emergency department under [place] act. Patient apparently had become depressed and had plans of jumping off of a hotel balcony. Law enforcement was called and patient was grabbed and pulled to safety and brought to the emergency department for further evaluation. Baseline lab work in the emergency department revealed mild leukocytosis and critical hyponatremia with sodium level 123. T bili minimally elevated at 1.1 and TSH 16.3. Urinalysis and toxicology screen negative. 06/25 Complaining of feeling dehydrated. Also complaining of headache. BUN up to 20. Will liberate fluid restrictions some. Continue sodium supplements. Continue monitoring sodium levels, patient is agreeable to repeat labwork in the morning. Trial of Fioricet for headache with hx of migraines. Hyponatremia, improving Euvolemic Acute on chronic Prior baseline of hyponatremia at 128 may be related to previous hypothyroidism Continue to treat hypothyroidism Continue salt tabs Continue fluid restriction but changed to 1800ml Effexor was discontinued for possible SSRI effect Hypothyroidism Continue levothyroxine Follow clinically This may be contributory to hyponatremia Outpatient TSH evaluation in approximately 6 weeks with PCP Further adjustments in levothyroxine could be considered at that time COPD, not in acute exacerbation asthma Continue albuterol Continue Symbicort Stable on room air for now Follow clinically Hypertension CAD Continue losartan Continue baseline treatment Follow blood pressures Adjust treatments as needed Depression Suicidal ideation Management per psychiatry Continue on Seroquel and clonazepam DVT prophylaxis SCDs Code Status: Full Discussed Condition With: patient, nursing staff, Dr. Nichols
[2018-06-25] MEDS: Acetaminophen 325 MG Tablet PO PRN (09:11)
[2018-06-25] MEDS: Budesonide-Formoterol 160/4.5 MCG 6 GM Inhaler INH SCH ×2 (09:12→21:51)
--- NOTE | 2018-06-25 12:42 | P.TTN ---
- Patient Problems Problems: 1. Discharge planning 2. Medication compliance 3. Knowledge deficit 4. Lack of coping skills - Progress Toward Goals Provider Present: Dr. Aviva Gonzalez (changed anti-depressant but patient is still depressed) Provider Input: 06/20/2018 Adjusting pharmacotherapy for behavioral change, depressed mood and suicidal ideation Nurse(s) Present: RN Nurse Input: Nurse states patient is cooperative, pleasant, confused and still has suicidal ideation with regret that the suicide attempt was not sucessful. Her NA level continues to drop. Psychiatric Counselors Present: Yocasta Beckham LM (Will talk with patient for safe discharge plan) Psychiatric Therapist Input: Patient continues with suicidal ideation and depressed mood. patient is still isolating Group Spec/RT/OT/RAWLS Present: CURLY Feldman Occupational Therapist Input: Patient is not able to participate at this time. - Documentation Teaching Recipient: Patient
--- NOTE | 2018-06-25 19:27 | P.PNPSY ---
Subjective Remarks: Patient seen for follow-up, chart reviewed. Discussion with nursing staff reported that patient patient denies any suicide ideation last night last time was yesterday. Patient was found lying hospital bed noted become cooperative. Patient states her mood has been "okay" stating that her weekend was boring at that same feeling irritated and continues to endorse suicide ideations during interview stating that she has thoughts now of walking into the ocean. Patient denies any auditory or visual hallucinations. Review of Systems All other systems reviewed negative except as stated in HPI Mental Status Examination Appearance: Appropriate Consciousness: Alert Orientation: Person, Place (At least) Motor Activity: Normal gait Speech: Unremarkable Language: Adequate Fund of Knowledge: Adequate (Fair) Attention and Concentration: Adequate Memory: Impaired Mood: Good Affect: Sad Thought Process & Associations: Intact Thought Content: Preoccupations Hallucination Type: None Delusion Type: Other (Possible component of paranoid delusion, unclear) Suicidal Ideation: Yes Suicidal Plan: No Suicidal Intention: No (No reported urge to hurt self on inpatient unit.) Homicidal Ideation: No Homicidal Plan: No Homicidal Intention: No Insight: Poor Judgment: Poor Assessment and Plan - Assessment (1) Adjustment disorder with mixed disturbance of emotions and conduct Code(s): F43.25 - Adjustment disorder with mixed disturbance of emotions and conduct Status: Acute - Plan Plan: Patient continued with depressed mood and continues to endorse suicidal ideation but noted with improved affect. We will continue to titrate quetiapine to 100 mg p.o. at bedtime. Continue to monitor sodium levels as they are improving. Hospitalist appreciated. Continue recommendations as per primary medical team. Continue to monitor mood and behavior. Discharge planning a progress. Justification for Continued Inpatient Stay: At risk of further decompensation at lower level care.
[2018-06-25] MEDS ORDERED: QUEtiapine 100 MG Tablet PO SCH (21:00)
[2018-06-26] MEDS: Levothyroxine 100 MCG Tablet PO SCH (07:02)
[2018-06-26] MEDS: Sodium Chloride 1 GM Tablet PO SCH ×2 (08:38→21:05)
[2018-06-26] MEDS: clonazePAM 0.5 MG Tablet PO SCH ×3 (08:38→21:05)
[2018-06-26] MEDS: Budesonide-Formoterol 160/4.5 MCG 6 GM Inhaler INH SCH ×2 (08:38→21:05)
--- NOTE | 2018-06-26 09:34 | P.PN ---
Subjective Interval history: Follow-up visit for hyponatremia and migraines. Patient is seen and examined in her room, complaints of the room being very cold. She denies any fevers, chills , N/V/D, cough or SOB. She does complain of constipation. She denies any further headaches or migraines. Physical Exam Vital signs: Vital Signs 06/25/18 17:56 06/26/18 06:00 Temperature 97.8 F 97.6 F Pulse Rate 78 81 Respiratory Rate 18 15 Blood Pressure 135/87 125/77 Pulse Oximetry 96 95 Intake & Output 06/25/18 06/26/18 06/26/18 18:59 06:59 18:59 Intake Total 150 / 150 580 / 580 Balance 150 / 150 580 / 580 Intake: Oral 150 / 150 480 / 480 Oral Supplement 100 / 100 Narrative: GENERAL: Well-nourished well-developed female in no acute distress. SKIN: Warm and dry. HEENT: Atraumatic. Normocephalic. Pupils equal and round. No scleral icterus. No injection or drainage. No nasal bleeding or discharge. Mucous membranes pink and moist. NECK: Trachea midline. CARDIOVASCULAR: Regular rate and rhythm. RESPIRATORY: No accessory muscle use. Clear to auscultation. Breath sounds equal bilaterally. GASTROINTESTINAL: Abdomen soft, non-tender, nondistended. +BS. MUSCULOSKELETAL: Extremities without clubbing, cyanosis, or edema. No obvious deformities. NEUROLOGICAL: Awake and alert. No obvious cranial nerve deficits. Motor grossly within normal limits. Able to move all extremities spontaneously. Normal speech. PSYCHIATRIC: Calm and cooperative. Results - Labs CBC & Chem 7: 06/24/18 10:33 06/26/18 10:30 Assessment and Plan - Assessment (1) Hyponatremia Code(s): E87.1 - Hypo-osmolality and hyponatremia Status: Acute (2) Elevated TSH Code(s): R79.89 - Other specified abnormal findings of blood chemistry Status : Acute (3) Adjustment disorder with depressed mood Code(s): F43.21 - Adjustment disorder with depressed mood Status: Acute (4) Adjustment disorder with mixed disturbance of emotions and conduct Code(s): F43.25 - Adjustment disorder with mixed disturbance of emotions and conduct Status: Acute - Plan 67-year-old female with past medical history significant for coronary artery disease with angioplasty x2, hypertension, COPD, asthma, prediabetes, hypothyroidism, and chronic hyponatremia who presents to the emergency department under [place] act. Patient apparently had become depressed and had plans of jumping off of a hotel balcony. Law enforcement was called and patient was grabbed and pulled to safety and brought to the emergency department for further evaluation. Baseline lab work in the emergency department revealed mild leukocytosis and critical hyponatremia with sodium level 123. T bili minimally elevated at 1.1 and TSH 16.3. Urinalysis and toxicology screen negative. Patient was cleared medically and admitted to inpatient psychiatry on 06/19, [facility] consulted to assist with ongoing medical management. Hyponatremia, improving Euvolemic Acute on chronic Prior baseline of hyponatremia at 128 may be related to previous hypothyroidism Continue to treat hypothyroidism Continue salt tabs Continue fluid restriction 1800ml Effexor was discontinued for possible SSRI effect NA this morning stable at 137, continue to monitor intermittently, if stable likely sign off in the next 2 days. Hypothyroidism Continue levothyroxine Follow clinically This may be contributory to hyponatremia Outpatient TSH evaluation in approximately 6 weeks with PCP Further adjustments in levothyroxine could be considered at that time COPD, not in acute exacerbation asthma Continue albuterol Continue Symbicort Stable on room air for now Follow clinically Hypertension CAD Continue losartan Continue baseline treatment Follow blood pressures Adjust treatments as needed Depression Suicidal ideation Management per psychiatry Continue on Seroquel and clonazepam DVT prophylaxis SCDs Discussed Condition With: Patient and RN
[2018-06-26] MEDS: Butalbital/APAP/Caff 50/325/40 MG Tablet PO PRN (11:08)
[2018-06-26 11:22] LABS: Calcium 8.6 mg/dL (8.5-10.1); Carbon Dioxide 29.4 meq/L (21.0-32.0)
--- NOTE | 2018-06-26 15:02 | P.DIET ---
Nutritional Evaluation Type of nutrition evaluation: follow-up Nutrition consult regarding: Diet Evaluation Nutrition screening: [facility] Screening comments: 06/20/18 [facility] Poor PO Intake Subjective Subjective Comments: Pt visited after lunch today. Pt complaining about not getting enough liquid and focused on wanting organic fruit and vegetables here. Food preferences updated. Objective - Diagnosis MDD recurrent severe w/psychosis - Objective % IBW: 103 Body Weight Used for Calculations: Actual (60.9kg) Energy Needs - Lower Range (kCal/kg): 25 Energy Needs - Upper Range (kCal/kg): 30 Lower Limit kCal/kg (kCals): 1,523 Upper Limit kCal/kg (kCals): 1,827 Lower Limit Protein Factor (Grams per Kg): 1.1 Upper Limit Protein Factor (Grams per Kg): 1.4 Lower Protein Needs (Protein): 67 Upper Protein Needs (Protein): 85 Dietitian Reviewed in Medical Record: Current diet, Curent medications, Intake & Output, Labs, Medical history Diet Order: Regular Fluid Restriction 1200ml Oral Diet Intake Amount: Fair 50-75% Objective Comments: PMH includes: Asthma, CAD, COPD, Pre-diabetes, hyperthyroidism, hypothryoidism, lung nodules, [place], uterine cancer Na 137, Glucose 117 Assessment Assessment: Pt is at nutritional risk r/t poor po intake. PO intake w/slight improvement. Send Glucerna Shakes TID(= 220 kcal and 10g protein). Plan to follow-up for supplement acceptance. Continue to honor pt food preference within the scope of the food and beverage associate here. Continue to offer a la carte menu options to assist w/ increased po intake. Labs reviewed-Na WNL-pt remains on a fluid restriction. Wt changes noted. Dietitian following. Recommendations: 1. Send Glucerna Shakes TID 2. Plan to follow-up for supplement acceptance 3. Continue to honor pt food preference within the scope of the food and beverage associate here 4. Continue to offer a la carte menu options to assist w/increased po intake 5. Dietitian following Dietitian to Monitor: Lab values, Electrolytes, Glucose level, Intake & Output, Weight change, PO Intake
[2018-06-26] MEDS ORDERED: QUEtiapine 100 MG Tablet PO SCH (15:43)
[2018-06-26] MEDS: Docusate Sodium 100 MG Capsule PO SCH (20:37)
--- NOTE | 2018-06-26 21:42 | P.PNPSY ---
Subjective Remarks: Patient seen for follow-up, chart reviewed. Discussion with nursing staff reported that patient patient continues feeling depressed and continue with suicide ideation but no plan continued with some anxiety. Patient was found lying hospital bed noted B, cooperative. Patient states that she is sleeping well that her mood has been "apprehensive" about being moved to [address] but continues report feeling depressed and continues to have suicide ideations. She states she is worried about paying her rent out her storage unit and was requesting access to her cell phone to make ongoing payment. Patient mentions frustration of not having her belongings stolen from couple she used to live with which she had objects which she inherited from her family that she had plan to pass onto her children. 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 Review of Systems All other systems reviewed negative except as stated in HPI Mental Status Examination Appearance: Appropriate Consciousness: Alert Orientation: Person, Place (At least) Motor Activity: Normal gait Speech: Unremarkable Language: Adequate Fund of Knowledge: Adequate (Fair) Attention and Concentration: Adequate Memory: Impaired Mood: Good Affect: Sad Thought Process & Associations: Intact Thought Content: Preoccupations Hallucination Type: None Delusion Type: Other (Possible component of paranoid delusion, unclear) Suicidal Ideation: Yes Suicidal Plan: No Suicidal Intention: No (No reported urge to hurt self on inpatient unit.) Homicidal Ideation: No Homicidal Plan: No Homicidal Intention: No Insight: Poor Judgment: Poor Assessment and Plan - Assessment (1) Adjustment disorder with mixed disturbance of emotions and conduct Code(s): F43.25 - Adjustment disorder with mixed disturbance of emotions and conduct Status: Acute - Plan Plan: Patient continues to report depressed mood along with continue suicide ideations but is noted to have more future oriented thought process. We will continue to titrate quetiapine to 100 mg p.o. at bedtime, continue to monitor sodium levels as they have improved. Hospitalist input appreciated. We will continue to monitor mood and behavior. Discharge planning in progress. Justification for Continued Inpatient Stay: At risk of further decompensation at lower level care.
[2018-06-27] MEDS: Levothyroxine 100 MCG Tablet PO SCH (05:17)
[2018-06-27] MEDS: Docusate Sodium 100 MG Capsule PO SCH ×2 (08:29→20:40)
[2018-06-27] MEDS: clonazePAM 0.5 MG Tablet PO SCH ×2 (08:29→15:12)
[2018-06-27] MEDS: Sodium Chloride 1 GM Tablet PO SCH ×2 (08:29→20:40)
[2018-06-27] MEDS: Budesonide-Formoterol 160/4.5 MCG 6 GM Inhaler INH SCH ×2 (08:29→20:41)
--- NOTE | 2018-06-27 10:47 | P.PNNP ---
Subjective Interval history: This is a late entry, note for 06/26/2018. Patient is alert, no complaint. Physical Exam Vital signs: Vital Signs 06/26/18 17:30 06/27/18 05:39 Temperature 98.0 F 97.6 F Pulse Rate 77 81 Respiratory Rate 18 17 Blood Pressure 135/74 119/57 L Pulse Oximetry 97 95 Intake & Output 06/26/18 06/27/18 06/27/18 18:59 06:59 18:59 Intake Total 1680 / 1680 Balance 1680 / 1680 Intake: Oral 1680 / 1680 Other: # Voids 3 Narrative: GENERAL: Well-nourished well-developed female in no acute distress. SKIN: Warm and dry. HEENT: Atraumatic. Normocephalic. Pupils equal and round. No scleral icterus. No injection or drainage. No nasal bleeding or discharge. Mucous membranes pink and moist. NECK: Trachea midline. CARDIOVASCULAR: Regular rate and rhythm. RESPIRATORY: No accessory muscle use. Clear to auscultation. Breath sounds equal bilaterally. GASTROINTESTINAL: Abdomen soft, non-tender, nondistended. +BS. MUSCULOSKELETAL: Extremities without clubbing, cyanosis, or edema. No obvious deformities. NEUROLOGICAL: Awake and alert. No obvious cranial nerve deficits. Motor grossly within normal limits. Able to move all extremities spontaneously. Normal speech. PSYCHIATRIC: Calm and cooperative. Assessment and Plan - Assessment (1) Hyponatremia Code(s): E87.1 - Hypo-osmolality and hyponatremia Status: Acute (2) Elevated TSH Code(s): R79.89 - Other specified abnormal findings of blood chemistry Status : Acute (3) Adjustment disorder with depressed mood Code(s): F43.21 - Adjustment disorder with depressed mood Status: Acute - Plan Patient has Hyponatremia, with euvolumic and high urine osmolality. Has an element of SIADH. Sodium is improving, now 137. continue fluid restriction and Nacl. I will sign off from Nephrology, please call again if needed.
--- NOTE | 2018-06-27 14:08 | P.PNPSY ---
Subjective Remarks: Patient seen for follow-up, chart reviewed. Discussion with nursing staff reported that patient continues report feeling depressed and having made suicidal statements if she were discharged staff. Patient was found participating group noted become cooperative. 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 Patient states that she is feeling less depressed but is worried about being homeless. Patient agrees to referral to an assisted living facility. Patient denying suicide ideations today stating feeling very sedated in the evening when she had to get up to go to restroom last night. Review of Systems All other systems reviewed negative except as stated in HPI Mental Status Examination Appearance: Appropriate Consciousness: Alert Orientation: Person, Place (At least) Motor Activity: Normal gait Speech: Unremarkable Language: Adequate Fund of Knowledge: Adequate (Fair) Attention and Concentration: Adequate Memory: Impaired Mood: Good Affect: Sad (Lessening) Thought Process & Associations: Intact Thought Content: Preoccupations Hallucination Type: None Delusion Type: Other (Possible component of paranoid delusion, unclear) Suicidal Ideation: Yes (Denies today) Suicidal Plan: No Suicidal Intention: No (No reported urge to hurt self on inpatient unit.) Homicidal Ideation: No Homicidal Plan: No Homicidal Intention: No Insight: Poor Judgment: Poor Assessment and Plan - Assessment (1) Adjustment disorder with mixed disturbance of emotions and conduct Code(s): F43.25 - Adjustment disorder with mixed disturbance of emotions and conduct Status: Acute - Plan Plan: Patient at this time noted with improvement in mood feeling less depressed and feeling less noted be more engaging more reactive affect, with no suicide ideations today. Patient more hopeful. We will continue to increase quetiapine to 200 mg nightly for mood stabilization and will decrease clonazepam to 0.5 mg twice daily. Continue rest of medications. Continue to monitor mood and behavior. Nephrology input appreciated. Discharge planning a progress. Justification for Continued Inpatient Stay: At risk of further decompensation at lower level care.
--- NOTE | 2018-06-27 14:18 | P.TTN ---
- Patient Problems Problems: 1. Discharge planning 2. Medication compliance 3. Knowledge deficit 4. Lack of coping skills - Progress Toward Goals Provider Present: Dr. Aviva Gonzalez (changed anti-depressant but patient is still depressed. June 27, 2018 patient presents as pleasant today and is advocating for assisted living facility placement) Provider Input: 06/20/2018 Adjusting pharmacotherapy for behavioral change, depressed mood and suicidal ideation Nurse(s) Present: RN Nurse Input: Nurse states patient is cooperative, pleasant, confused and still has suicidal ideation with regret that the suicide attempt was not sucessful. Her NA level continues to drop. Psychiatric Counselors Present: Dejuan Blanco Jr., [facility] (Counselor seeking [facility] placement options at this time.), Yocasta Beckham [facility] (Will talk with patient for safe discharge plan) Psychiatric Therapist Input: Patient continues with suicidal ideation and depressed mood. patient is still isolating Group Spec/RT/OT/RAWLS Present: CURLY Feldman (And select groups.) Occupational Therapist Input: Patient is not able to participate at this time. - Documentation Teaching Recipient: Patient
[2018-06-28] MEDS: Levothyroxine 100 MCG Tablet PO SCH (05:28)
[2018-06-28 07:48] LABS: Calcium 8.7 mg/dL (8.5-10.1); Carbon Dioxide 30.3 meq/L (21.0-32.0); Potassium 4.3 meq/L (3.5-5.1)
[2018-06-28] MEDS: Docusate Sodium 100 MG Capsule PO SCH ×2 (08:52→21:20)
[2018-06-28] MEDS: Sodium Chloride 1 GM Tablet PO SCH ×2 (08:53→21:20)
[2018-06-28] MEDS: Budesonide-Formoterol 160/4.5 MCG 6 GM Inhaler INH SCH ×2 (08:53→21:21)
[2018-06-28] MEDS: clonazePAM 0.5 MG Tablet PO SCH ×2 (08:53→16:24)
--- NOTE | 2018-06-28 14:32 | P.PNADD ---
Addendum to Inpatient Note Reason for Addendum: Additional Documentation Additional information: Spoke with nurse reports patient is requesting more oral fluids. Will increase fluid restriction to 2 L daily, patient's sodium level has been stable. Continue sodium tablets BID. Will order BMP in the next 3 days for follow-up. Will sign off for now, if BMP abnormal please reconsult [facility].
--- NOTE | 2018-06-28 15:30 | P.PNPSY ---
Subjective Remarks: Patient seen for follow-up, chart reviewed. Discussion with nursing staff reported that patient found to be, cooperative, visible on the unit and compliant with medications. Patient was found in blade on the unit noted B, cooperative stating that she is feeling "good" reporting feeling less depressed and decreasing his suicidal ideation. Patient states she is eating and drinking well although reports feeling constipated for the past couple of days now. Patient continues report feeling more hopeful and denying any perceptional disturbances at this time. Review of Systems All other systems reviewed negative except as stated in HPI Mental Status Examination Appearance: Appropriate Consciousness: Alert Orientation: Person, Place (At least) Motor Activity: Normal gait Speech: Unremarkable Language: Adequate Fund of Knowledge: Adequate (Fair) Attention and Concentration: Adequate Memory: Impaired Mood: Good Affect: Appropriate Thought Process & Associations: Intact Thought Content: Preoccupations (With possibility of homelessness) Hallucination Type: None Delusion Type: None Suicidal Ideation: Yes (Denies today) Suicidal Plan: No Suicidal Intention: No (No reported urge to hurt self on inpatient unit.) Homicidal Ideation: No Homicidal Plan: No Homicidal Intention: No Insight: Fair Judgment: Impulsive Assessment and Plan - Assessment (1) Adjustment disorder with mixed disturbance of emotions and conduct Code(s): F43.25 - Adjustment disorder with mixed disturbance of emotions and conduct Status: Acute - Plan Plan: Patient mood continues to be improving and that she is feeling less depressed and suicidality is decreasing. She is noted to be more hopeful. We will continue current treatment. We will continue to monitor mood and behavior. Discharge planning in progress. Justification for Continued Inpatient Stay: At risk of further decompensation at lower level care. Discharge Planning: Patient to be discharged to an assisted living facility if accepted upon stabilization.
[2018-06-29] MEDS: Levothyroxine 100 MCG Tablet PO SCH (05:53)
[2018-06-29] MEDS: Budesonide-Formoterol 160/4.5 MCG 6 GM Inhaler INH SCH ×2 (08:38→20:57)
[2018-06-29] MEDS: Docusate Sodium 100 MG Capsule PO SCH ×2 (08:38→20:56)
[2018-06-29] MEDS: Sodium Chloride 1 GM Tablet PO SCH ×2 (08:38→20:56)
[2018-06-29] MEDS: clonazePAM 0.5 MG Tablet PO SCH ×2 (08:45→14:16)
[2018-06-29] MEDS: Butalbital/APAP/Caff 50/325/40 MG Tablet PO PRN (12:18)
--- NOTE | 2018-06-29 16:07 | P.PNPSY ---
Subjective Remarks: Patient seen for follow-up, chart reviewed. Discussion with nursing staff reported that patient no behavioral issues overnight. Patient was found in blade on unit noted B, cooperative. Patient states she met with [facility] sales representative groceries yesterday which she states went well. Patient reports sleeping well, continued to feel "anxious" about discharge plan where she would go upon discharge. She reports eating and drinking well states that she is feeling less depressed more hopeful now is attending groups denying any suicide ideations today. Review of Systems All other systems reviewed negative except as stated in HPI Mental Status Examination Appearance: Appropriate Consciousness: Alert Orientation: Person, Place (At least) Motor Activity: Normal gait Speech: Unremarkable Language: Adequate Fund of Knowledge: Adequate (Fair) Attention and Concentration: Adequate Memory: Impaired Mood: Good Affect: Appropriate Thought Process & Associations: Intact Thought Content: Preoccupations (With possibility of homelessness) Hallucination Type: None Delusion Type: None Suicidal Ideation: Yes (Denies today) Suicidal Plan: No Suicidal Intention: No (No reported urge to hurt self on inpatient unit.) Homicidal Ideation: No Homicidal Plan: No Homicidal Intention: No Insight: Fair Judgment: Impulsive Assessment and Plan - Assessment (1) Adjustment disorder with mixed disturbance of emotions and conduct Code(s): F43.25 - Adjustment disorder with mixed disturbance of emotions and conduct Status: Acute - Plan Plan: Patient continues to have some anxiety related to her discharge but is more hopeful. Patient reports improved mood denying any suicide ideations. Continue current treatment. Continue to monitor mood and behavior. We will wait to hear from possible [facility]'s that may except patient upon discharge. Discharge planning in progress. Justification for Continued Inpatient Stay: At risk of further decompensation at lower level care.
[2018-06-30] MEDS: Acetaminophen 325 MG Tablet PO PRN (01:38)
[2018-06-30] MEDS: Levothyroxine 100 MCG Tablet PO SCH (06:00)
[2018-06-30] MEDS: clonazePAM 0.5 MG Tablet PO SCH ×2 (08:35→14:54)
[2018-06-30] MEDS: Sodium Chloride 1 GM Tablet PO SCH ×2 (08:35→20:52)
[2018-06-30] MEDS: Docusate Sodium 100 MG Capsule PO SCH ×2 (08:35→20:52)
[2018-06-30] MEDS: Budesonide-Formoterol 160/4.5 MCG 6 GM Inhaler INH SCH ×2 (08:36→20:52)
[2018-06-30] MEDS: Butalbital/APAP/Caff 50/325/40 MG Tablet PO PRN (14:15)
[2018-06-30] MEDS ORDERED: Melatonin 5 MG Tablet PO PRN (17:02)
--- NOTE | 2018-06-30 18:21 | P.PNPSY ---
Subjective Remarks: Reviewed electronic medical records and discussed case with staff. Follow-up was conducted in the patient's room with COLE Walton present. Her nurse advises that she has been complaining of a blister on her foot today. She states that she remains somewhat somatic, irritable, and demanding. Patient states that her mood is "a little bit better". But she is apprehensive about future living arrangements. She states that she has been having difficulty sleeping due to the Benadryl not working. I have changed from Benadryl to melatonin at her request. She states that she has had a good appetite. Mental Status Examination Appearance: Appropriate Consciousness: Alert Orientation: Person, Place (At least) Motor Activity: Normal gait Speech: Unremarkable Language: Adequate Fund of Knowledge: Adequate (Fair) Attention and Concentration: Adequate Memory: Impaired Mood: Good Affect: Appropriate Thought Process & Associations: Intact Thought Content: Preoccupations (With possibility of homelessness) Hallucination Type: None Delusion Type: None Suicidal Ideation: Yes (Denies today) Suicidal Plan: No Suicidal Intention: No (No reported urge to hurt self on inpatient unit.) Homicidal Ideation: No Homicidal Plan: No Homicidal Intention: No Insight: Fair Judgment: Impulsive Assessment and Plan - Assessment (1) Adjustment disorder with mixed disturbance of emotions and conduct Code(s): F43.25 - Adjustment disorder with mixed disturbance of emotions and conduct Status: Acute - Plan Plan: Patient will be reevaluated by the attending psychiatrist. Continue with current treatment plan. Justification for Continued Inpatient Stay: Moving this patient to a less restrictive environment would likely result in decompensation.
[2018-07-01] MEDS: Levothyroxine 100 MCG Tablet PO SCH (05:50)
[2018-07-01] MEDS: clonazePAM 0.5 MG Tablet PO SCH ×2 (08:10→14:43)
[2018-07-01] MEDS: Budesonide-Formoterol 160/4.5 MCG 6 GM Inhaler INH SCH ×2 (08:10→20:31)
[2018-07-01] MEDS: Sodium Chloride 0.65% Nasal Spray 45 ML Bottle EACH NARE PRN ×2 (08:10→14:43)
[2018-07-01] MEDS: Sodium Chloride 1 GM Tablet PO SCH ×2 (08:10→20:31)
[2018-07-01] MEDS: Docusate Sodium 100 MG Capsule PO SCH ×2 (08:10→20:32)
[2018-07-01] MEDS: Butalbital/APAP/Caff 50/325/40 MG Tablet PO PRN (09:51)
[2018-07-01 11:07] LABS: Calcium 8.8 mg/dL (8.5-10.1); Carbon Dioxide 30.6 meq/L (21.0-32.0); Potassium 4.1 meq/L (3.5-5.1)
--- NOTE | 2018-07-01 11:54 | P.PNPSY ---
Subjective Remarks: Reviewed electronic medical records and discussed case with staff. Follow-up was conducted in the common area with COLE Walton present. Patient states that she is anxious because she is aware of her placement in an Assisted Living. She met with the Assisted Living and liked thepeople representing the organization. She is happy that a place was found and that she will be able to relocate soon. Review of Systems All other systems reviewed negative except as stated in HPI Mental Status Examination Appearance: Appropriate Consciousness: Alert Orientation: Person, Place (At least) Motor Activity: Normal gait Speech: Unremarkable Language: Adequate Fund of Knowledge: Adequate (Fair) Attention and Concentration: Adequate Memory: Impaired Mood: Good Affect: Appropriate Thought Process & Associations: Intact Thought Content: Preoccupations (with [facility] placement ) Hallucination Type: None Delusion Type: None Suicidal Ideation: No Suicidal Plan: No Suicidal Intention: No Homicidal Ideation: No Homicidal Plan: No Homicidal Intention: No Insight: Fair Judgment: Impulsive Assessment and Plan - Assessment (1) Adjustment disorder with depressed mood Code(s): F43.21 - Adjustment disorder with depressed mood Status: Acute - Plan Plan: Patient will be reevaluated by the attending psychiatrist. Continue with current treatment plan. Justification for Continued Inpatient Stay: Moving patient to a less restrictive environment may result in her decompensation.
[2018-07-02] MEDS: Levothyroxine 100 MCG Tablet PO SCH (05:58)
[2018-07-02] MEDS: Docusate Sodium 100 MG Capsule PO SCH ×2 (08:38→21:00)
[2018-07-02] MEDS: Sodium Chloride 1 GM Tablet PO SCH ×2 (08:38→21:00)
[2018-07-02] MEDS: Budesonide-Formoterol 160/4.5 MCG 6 GM Inhaler INH SCH ×2 (08:42→21:00)
[2018-07-02] MEDS: clonazePAM 0.5 MG Tablet PO SCH ×2 (08:42→15:07)
[2018-07-02] MEDS: Butalbital/APAP/Caff 50/325/40 MG Tablet PO PRN (10:07)
--- NOTE | 2018-07-02 15:50 | P.TTN ---
- Patient Problems Problems: 1. Discharge planning 2. Medication compliance 3. Knowledge deficit 4. Lack of coping skills - Progress Toward Goals Provider Present: Dr. Aviva Gonzalez (changed anti-depressant but patient is still depressed. June 27, 2018 patient presents as pleasant today and is advocating for assisted living facility placement) Provider Input: 06/20/2018 Adjusting pharmacotherapy for behavioral change, depressed mood and suicidal ideation Nurse(s) Present: May Nurse Input: 07/02: Pt is cooperative and compliant. Nurse states patient is cooperative, pleasant, confused and still has suicidal ideation with regret that the suicide attempt was not sucessful. Her NA level continues to drop. Psychiatric Counselors Present: Dejuan Blanco Jr., [facility] (Counselor seeking SK[facility] NURSING placement options at this time.), Yocasta Beckham [facility] (Will talk with patient for safe discharge plan) Psychiatric Therapist Input: Patient continues with suicidal ideation and depressed mood. patient is still isolating Group Spec/RT/OT/RAWLS Present: CURLY Feldman (And select groups.), Slim Tam OT Group Spec/RT/OT/RAWLS Input: 07/02: Pt attends groups minimally with encouragement; she makes excuses not to attend such as "waiting for her doctor" or being physically impaired. I have educated her on the significance of group participation and will continue to encourage her Occupational Therapist Input: Patient is not able to participate at this time. Clinical Coordinator: AUSTIN Acosta - Discharge Plan Other 07/02: Pending placement to a facility or [facility] upon discharge - Documentation Teaching Recipient: Patient
--- NOTE | 2018-07-02 16:01 | P.PNPSY ---
Subjective Remarks: Patient seen for follow-up, chart reviewed. Discussion with nursing staff reported that patient no behavioral changes with patient is attending groups and visible on the unit. Patient was found breast rating group activity noted B , cooperative. Patient states that she was recalling events prior to her admission was upset that certain aspects of her health was ignored or neglected during her previous ED visits at other hospitals. She states that she was feeling suicidal because of her medical issues and that she had no prior psychiatric issues prior to this event. She reports eating and drinking well. Patient looks forward to possibly being accepted in this facility facility. Patient reports tolerating medications well denying any suicidal homicidal ideations at this time. Review of Systems All other systems reviewed negative except as stated in HPI Mental Status Examination Appearance: Appropriate Consciousness: Alert Orientation: Person, Place (At least) Motor Activity: Normal gait Speech: Unremarkable Language: Adequate Fund of Knowledge: Adequate (Fair) Attention and Concentration: Adequate Memory: Impaired Mood: Good Affect: Appropriate Thought Process & Associations: Intact Thought Content: Preoccupations (With possibility of homelessness) Hallucination Type: None Delusion Type: None Suicidal Ideation: No Suicidal Plan: No Suicidal Intention: No (No reported urge to hurt self on inpatient unit.) Homicidal Ideation: No Homicidal Plan: No Homicidal Intention: No Insight: Fair Judgment: Impulsive Assessment and Plan - Assessment (1) Adjustment disorder with mixed disturbance of emotions and conduct Code(s): F43.25 - Adjustment disorder with mixed disturbance of emotions and conduct Status: Acute - Plan Plan: Patient continues with stable mood noted to be participatory in groups and activities, tolerating medications well. We will continue current treatment. Continue to monitor mood and behavior. Discharge planning in progress. Justification for Continued Inpatient Stay: At risk of further decompensation at lower level care. Discharge Planning: Awaiting response from possible ALS that will be willing to take this patient.
[2018-07-03] MEDS: Levothyroxine 100 MCG Tablet PO SCH (06:17)
[2018-07-03] MEDS: Acetaminophen 325 MG Tablet PO PRN (06:19)
[2018-07-03] MEDS: Sodium Chloride 1 GM Tablet PO SCH ×2 (09:07→22:06)
[2018-07-03] MEDS: Budesonide-Formoterol 160/4.5 MCG 6 GM Inhaler INH SCH ×2 (09:07→22:05)
[2018-07-03] MEDS: Docusate Sodium 100 MG Capsule PO SCH ×2 (09:07→22:06)
[2018-07-03] MEDS: clonazePAM 0.5 MG Tablet PO SCH ×2 (09:09→16:25)
[2018-07-03] MEDS: Sodium Chloride 0.65% Nasal Spray 45 ML Bottle EACH NARE PRN (09:14)
--- NOTE | 2018-07-03 16:15 | P.PNPSY ---
Subjective Remarks: Patient seen for follow up; chart reviewed. Discussion with nursing staff reported no behavioral disturbances has been visible on the unit now for groups. Patient was found lying hospital bed noted B, cooperative. Patient state that she has some cramping last evening and had been requesting more fluids to stay hydrated. She states having spoken with her counselor and has plans to meet with another client account representative from a different assisted living facility dated today or tomorrow which she is excited for. She states her mood has been "okay" denying any suicide ideations feeling more hopeful and wanting to be accepted into this assisted living facility soon. He denies any perceptional delusions or delusions. Review of Systems All other systems reviewed negative except as stated in HPI Mental Status Examination Appearance: Appropriate Consciousness: Alert Orientation: Person, Place (At least) Motor Activity: Normal gait Speech: Unremarkable Language: Adequate Fund of Knowledge: Adequate (Fair) Attention and Concentration: Adequate Memory: Impaired Mood: Good Affect: Appropriate Thought Process & Associations: Intact Thought Content: Preoccupations (With possibility of homelessness) Hallucination Type: None Delusion Type: None Suicidal Ideation: No Suicidal Plan: No Suicidal Intention: No Homicidal Ideation: No Homicidal Plan: No Homicidal Intention: No Insight: Fair Judgment: Impulsive Assessment and Plan - Assessment (1) Adjustment disorder with mixed disturbance of emotions and conduct Code(s): F43.25 - Adjustment disorder with mixed disturbance of emotions and conduct Status: Acute - Plan Plan: Patient continued with stable mood denying feeling depressed or having any suicidal ideations recently. Patient continues to be hopeful that she will be accepted to the assisted living facility. We will await for meeting the patient with client account representative from the [facility]. We will continue current treatment. We will continue to monitor mood and behavior. Discharge planning a progress. Justification for Continued Inpatient Stay: At risk of further decompensation at lower level care.
--- NOTE | 2018-07-03 17:00 | P.DIET ---
Nutritional Evaluation Type of nutrition evaluation: follow-up Nutrition consult regarding: Diet Evaluation Nutrition screening: [facility] [place] Scre[place] comments: 06/20/18 [facility] [place] Poor PO Intake Subjective Subjective Comments: Pt. visited during dinner in the dayroom. Pt says she drinks all of the Glucerna Shakes; however, she is still desiring to have more fluids. Pt is also having issues w/her menu ordering; pt doesnt receive some foods that she orders. Pt adds that it doesnt matter now because she will be discharged tomorrow 07/05/18 Objective - Diagnosis MDD recurrent severe w/psychosis - Objective % IBW: 103 Body Weight Used for Calculations: Actual (60.9kg) Energy Needs - Lower Range (kCal/kg): 25 Energy Needs - Upper Range (kCal/kg): 30 Lower Limit kCal/kg (kCals): 1,523 Upper Limit kCal/kg (kCals): 1,827 Lower Limit Protein Factor (Grams per Kg): 1.1 Upper Limit Protein Factor (Grams per Kg): 1.4 Lower Protein Needs (Protein): 67 Upper Protein Needs (Protein): 85 Dietitian Reviewed in Medical Record: Current diet, Curent medications, Intake & Output, Labs, Medical history Diet Order: Regular Fluid Restriction 1200ml Oral Diet Intake Amount: Good 75-90% Objective Comments: PMH includes: Asthma, CAD, COPD, Pre-diabetes, hyperthyroidism, hypothryoidism, lung nodules, [place], uterine cancer Na 139, Glucose 92 Feeding - Current PO Supplement Current Supplement: Glucerna Shake Current Frequency of Supplement: Three times a day Current kCals Provided by Supplement: 220 Current Protein Provided by Supplement: 10 Assessment Assessment: Pt continues to be at nutritional risk r/t poor po intake. PO intake has now improved to 50% or greater for meals. Continue Glucerna Shakes TID. Continue to honor pt food preference within the scope of the food science technician here. Continue to offer a la carte menu options to assist w/increased po intake. Labs reviewed-Na WNL-pt remains on a fluid restriction. Wt changes noted. Dietitian following. Recommendations: 1. Glucerna Shakes TID 2. Continue to honor pt food preference within the scope of the food science technician here 3. Continue to offer a la carte menu options to assist w/increased po intake 4. Dietitian following Dietitian to Monitor: Lab values, Electrolytes, Glucose level, Intake & Output, Weight change, PO Intake
[2018-07-04] MEDS: Levothyroxine 100 MCG Tablet PO SCH (05:18)
[2018-07-04] MEDS: Docusate Sodium 100 MG Capsule PO SCH ×2 (08:51→20:48)
[2018-07-04] MEDS: Sodium Chloride 1 GM Tablet PO SCH ×2 (08:51→20:48)
[2018-07-04] MEDS: clonazePAM 0.5 MG Tablet PO SCH ×2 (08:54→16:59)
[2018-07-04] MEDS: Acetaminophen 325 MG Tablet PO PRN (08:55)
[2018-07-04] MEDS: Budesonide-Formoterol 160/4.5 MCG 6 GM Inhaler INH SCH ×2 (12:11→21:33)
--- NOTE | 2018-07-04 15:37 | P.PNPSY ---
Subjective Remarks: Patient seen for follow-up, chart reviewed. Discussion with nursing staff reported that patient no behavioral changes noted to be participatory in groups and activities with good affect. Patient was found in day room socializing with other peers and watching television. Patient states she is feeling hopeful and happy that she is will be accepted to an assisted living facility and discharged tomorrow to this facility. Patient continues to report improved mood denying feeling depressed at this time denying suicidal homicidal ideations. Patient mentions looking forward to reconnecting with other peers whom she met on the unit. Review of Systems All other systems reviewed negative except as stated in HPI Mental Status Examination Appearance: Appropriate Consciousness: Alert Orientation: Person, Place (At least) Motor Activity: Normal gait Speech: Unremarkable Language: Adequate Fund of Knowledge: Adequate (Fair) Attention and Concentration: Adequate Memory: Impaired Mood: Good Affect: Appropriate Thought Process & Associations: Intact Thought Content: Appropriate Hallucination Type: None Delusion Type: None Suicidal Ideation: No Suicidal Plan: No Suicidal Intention: No Homicidal Ideation: No Homicidal Plan: No Homicidal Intention: No Insight: Fair Judgment: Impulsive Assessment and Plan - Assessment (1) Adjustment disorder with mixed disturbance of emotions and conduct Code(s): F43.25 - Adjustment disorder with mixed disturbance of emotions and conduct Status: Acute - Plan Plan: Patient continues with stable mood denying any suicidal or homicidal ideations. Patient likely for discharge tomorrow as patient was accepted to an assisted living facility ([facility]). We will continue current treatment. We will continue to monitor mood and behavior. Discharge planning a progress. Justification for Continued Inpatient Stay: At risk of further decompensation at lower level care.
[2018-07-05 05:08] VITALS: BP 110/56; PULSE 77; RESP 16; TEMP 97.6; O2SAT 96
[2018-07-05] MEDS: Levothyroxine 100 MCG Tablet PO SCH (06:17)
[2018-07-05] MEDS: Sodium Chloride 1 GM Tablet PO SCH (08:12)
[2018-07-05] MEDS: Docusate Sodium 100 MG Capsule PO SCH (08:12)
[2018-07-05] MEDS: clonazePAM 0.5 MG Tablet PO SCH (08:14)
--- NOTE | 2018-07-05 09:10 | P.TTN ---
- Patient Problems Problems: 1. Discharge planning 2. Medication compliance 3. Knowledge deficit 4. Lack of coping skills - Progress Toward Goals Provider Present: Dr. Aviva Gonzalez (changed anti-depressant but patient is still depressed. June 27, 2018 patient presents as pleasant today and is advocating for assisted living facility placement) Provider Input: 07/04/18: Pt is expected to discharge to [facility] on 07/05/18, per . 06/20/2018 Adjusting pharmacotherapy for behavioral change, depressed mood and suicidal ideation Nurse(s) Present: May Nurse Input: 07/02: Pt is cooperative and compliant. Nurse states patient is cooperative, pleasant, confused and still has suicidal ideation with regret that the suicide attempt was not sucessful. Her NA level continues to drop. Psychiatric Counselors Present: Dejuan Blanco Jr., [facility] (Counselor seeking [facility] placement options at this time.), Yocasta Beckham [facility] (Will talk with patient for safe discharge plan) Psychiatric Therapist Input: Patient continues with suicidal ideation and depressed mood. patient is still isolating Group Spec/RT/OT/RAWLS Present: CURLY Feldman (And select groups.), Slim Tam OT Group Spec/RT/OT/RAWLS Input: 07/04/18: Pt rarely attends groups. 07/02: Pt attends groups minimally with encouragement; she makes excuses not to attend such as "waiting for her doctor" or being physically impaired. I have educated her on the significance of group participation and will continue to encourage her Occupational Therapist Input: Patient is not able to participate at this time. Clinical Coordinator: Nikki Styles [facility] - Discharge Plan Other 07/04/18: Pt is expected to discharge to [facility] on 07/05/18, per . 07/02: Pending placement to a facility or [facility] upon discharge - Documentation Teaching Recipient: Patient
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
== END 2018-07-05 11:40 ==
LOC: H4EA 12:51 → HCPC 06-25 09:02 → H4EA 06-25 09:05 → H260 06-26 15:44
PROVIDERS: ADMIT Student in an Organized Health Care Education/Training Program; ATTEND Student in an Organized Health Care Education/Training Program